=== PATIENT | female | born 1980 | race Caucasian/White ===

== ENCOUNTER → 2019-10-31 12:45 | Outpatient (BNVA) | payer MEDICAID, SELFPAY | PROVIDERS: Family Provider Family Medicine; PCP Family Medicine; Visit Provider Nurse Practitioner | DX: F43.12 Post-traumatic stress disorder, chronic (principal); F31.11 Bipolar disorder, current episode manic without psychotic features, mild; F41.1 Generalized anxiety disorder; F41.0 Panic disorder [episodic paroxysmal anxiety] | CPT/HCPCS: 99214 ==

== ENCOUNTER → 2019-11-13 10:29 | Outpatient (BNVA) | payer MEDICAID, SELFPAY | PROVIDERS: Family Provider Family Medicine; PCP Family Medicine; Visit Provider Psychiatry & Neurology Psychiatry | DX: F31.11 Bipolar disorder, current episode manic without psychotic features, mild (principal); F41.1 Generalized anxiety disorder; F41.0 Panic disorder [episodic paroxysmal anxiety]; F43.12 Post-traumatic stress disorder, chronic | CPT/HCPCS: 99214 ==

== ENCOUNTER → 2019-11-28 15:42 | Outpatient (BNVA) | payer MEDICAID, SELFPAY | PROVIDERS: Family Provider Family Medicine; PCP Family Medicine; Visit Provider Psychiatry & Neurology Psychiatry | DX: F31.11 Bipolar disorder, current episode manic without psychotic features, mild (principal); F41.1 Generalized anxiety disorder; F41.0 Panic disorder [episodic paroxysmal anxiety]; F43.12 Post-traumatic stress disorder, chronic | CPT/HCPCS: 99213 ==

== ENCOUNTER 2019-12-17 19:57 | Emergency (ER) | payer MEDICAID, SELFPAY ==
[2019-12-17 20:00] VITALS: BP 126/87; PULSE 70; RESP 18; TEMP 36.8; O2SAT 99; BMI 20.2
--- NOTE | 2019-12-17 21:23 | ED_ITS ---
Entered by Tatyana Rose, acting as scribe for HPI - General Adult General: Chief complaint: General Medical Stated complaint: hemorrhoid Time Seen by Provider: 12/17/19 21:22 Source: patient Mode of arrival: ambulatory Limitations: no limitations History of Present Illness: HPI narrative: 39 yo Female presents to ED with complaint of hemorrhoid. Pt states that she went to her doctor's office and was told that her hemorrhoid is thrombosed and she needed to come to the ED to have it lanced. Pt states that she is in severe pain. MD complaint: Hemorrhoid pain Onset (ago): day(s) Location: buttocks Radiation: non-radiation Severity scale (1-10): 8 Quality: constant Pain Consistency: constant Relieving factors: none Exacerbating factors: none Associated symptoms: Reports other (rectal pain); Deny chest pain, confusion, diaphoresis, dyspnea, headache(s), malaise, nausea, rash, palpitations, syncope or vomiting Treatments prior to arrival: none Review of Systems General: Reports: other (negative unless marked) Const: Denies: fever, chills, body aches, fatigue, malaise or diaphoresis Eyes: Denies: change in vision or blurry vision ENMT: Denies: throat pain, painful swallowing, hoarseness, ear pain, ear discharge, Change in hearing or nasal discharge Card: Denies: chest pain, palpitations, irregular heart rhythm, syncope, pre- syncope, shortness of breath on exertion or shortness of breath when lying down Resp: Denies: shortness of breath, productive cough, non-productive cough, wheezing, coughing up blood or chest congestion GI: Reports: rectal pain; Denies: abdominal pain, nausea, vomiting, vomiting blood, coffee grounds in vomit, diarrhea, constipation, cramping, blood in stool or black tarry stool : Denies: flank pain, painful urination, urinary frequency, urinary urgency, decreased urine ouput, urinary incontinence or blood in urine Musc: Denies: neck pain, back pain, extremity pain, extremity swelling, joint pain, joint swelling, joint warmth or joint stiffness Skin/Breast: Denies: rash, skin tenderness or yellow skin Neuro: Denies: headache, numbness in extremities, weakness in extremities, changes in sensation, lack of coordination, difficulty walking, dizziness, vertigo or confusion Endo: Denies: excessive thirst, tired all the time, cold intolerance, excessive sweating, flushing or hot flashes Livan/Lymph: Denies: easy bruising, easy bleeding, petechiae or enlarged lymph nodes All/Imm: Denies: hives, throat swelling, tongue swelling, facial swelling or acute wheezing PFSH ED PFSH: Medical History Bipolar disorder, current episode manic without psychotic features, mild Generalized anxiety disorder Panic disorder [episodic paroxysmal anxiety] Post-traumatic stress disorder, chronic Social History Smoking and tobacco status: never smoked Second hand smoke exposure: No Smoking risk assessment/counseling performed?: Yes Tobacco counseling given: counseling >3 minutes Desire information about substance/drug rehabilitation?: No Physical Exam Const: COMMON NORMALS: no apparent distress, oriented x3, no limitations, healthy appearing and well nourished EXAM LIMITATIONS: no altered mental status GENERAL APPEARANCE: cooperative, well kempt and well developed ORIENTATION/CONSCIOUSNESS: Yes awake HENMT: COMMON NORMALS: normocephalic, head/scalp atraumatic, hearing grossly normal bilaterally, external ears normal, EAC's normal, external nose normal and moist oral mucous membranes HEAD & SCALP: normal to inspection, normocephalic and atraumatic FACE & SINUS: normal facial exam and face symmetric NOSE: external nose normal and nares normal EXTERNAL EAR: Yes external ears normal EXTERNAL AUDITORY CANAL: EAC's normal MOUTH: oral and palatal mucosa normal and tongue normal Eye: COMMON NORMALS: PERRL, EOMs intact bilaterally, conjunctivae normal and no scleral icterus GENERAL EYE: normal appearance of both eyes and normal light reflex CONJUNCTIVA: Yes conjunctivae normal SCLERA: sclerae normal CORNEA: Yes corneas normal PUPIL: Yes PERRL DIRECT OPHTHALMOSCOPY: Yes normal light reflex Neck/C-Spine: COMMON NORMALS: full ROM, no lymphadenopathy, supple, no meningeal signs and no JVD GENERAL: Yes normal visual inspection and Yes trachea midline CERVICAL SPINE: Yes cervical ROM normal Chest: COMMONS NORMALS: inspection of chest normal and palpation of chest normal Resp: COMMON NORMALS: normal respiratory effort, no retractions, no use of accessory muscles and clear to auscultation bilaterally EFFORT & INSPECTION: Yes able to speak in complete sentences AUSCULTATION: clear to auscultation bilaterally Cardio: COMMON NORMALS: no JVD, regular rate, regular rhythm, S1 normal heart sound, S2 normal heart sound, no gallops, no clicks, no murmurs and no rub JUGULAR VENOUS DISTENTION: no JVD RATE: regular rate RHYTHM: regular rhythm HEART SOUNDS: S1 normal and S2 normal GI: COMMON NORMALS: soft to palpation, non-tender, no hepatosplenomegaly and no masses INSPECTION: Yes normal to inspection PALPATION: Yes soft and Yes no hepatosplenomegaly : COMMON NORMALS: Yes no CVA tenderness BLADDER/KIDNEY EXAM: Yes no CVA tenderness Back/Pelvis: COMMON NORMALS: no CVA tenderness, thoracic and lumbar spine normal to inspection, no thoracic nor lumbar tenderness and thoraco-lumbar ROM normal Extremity: COMMON NORMALS: normal to inspection, full ROM, normal capillary refill, no joint enlargement, no clubbing, cyanosis or edema and no calf tenderness Neuro: COMMON NORMALS: oriented x3, CN's II-XII intact bilaterally, moves all extremities, no focal motor deficits and no sensory deficits noted MENINGEAL SIGNS: Yes no meningeal signs Psych: COMMON NORMALS: mental status grossly normal, thought process normal, cooperative, affect normal, speech normal and activity/motor behavior normal APPEARANCE: Yes well kempt SPEECH: Yes normal speech THOUGHT PROCESS: normal thought process Skin: COMMON NORMALS: no rashes or lesions noted, skin turgor normal, no jaundice, no petechiae and no mottling GENERAL SKIN EXAM: no rashes or lesions noted and turgor normal Course Vital Signs: Vital signs: Vital Signs Temperature 98.2 F 12/17/19 20:00 Pulse Rate 73 12/17/19 22:05 Respiratory Rate 18 12/17/19 22:05 Blood Pressure 131/80 12/17/19 22:05 Pulse Oximetry 98 12/17/19 22:05 Discharge Plan Discharge Patient Disposition: Home, Self-Care Clinical Impression: Hemorrhoid Qualifiers: Hemorrhoid type: unspecified Qualified Code(s): K64.9 - Unspecified hemorrhoids Condition: Stable Prescriptions: New Anusol-HC 25 mg suppository 25 mg OH Q12H 14 Days RF: 0 No Action baclofen 10 mg tablet 15 mg PO TID RF: 0 ibuprofen 800 mg tablet 800 mg PO Q6H PRN (Reason: pain) RF: 0 ziprasidone HCl [Geodon] 40 mg capsule 40 mg PO BID Qty: 60 RF: 2 sertraline 50 mg tablet 50 mg PO DAILY Qty: 30 RF: 1 trazodone 50 mg tablet 100 mg PO .HS Qty: 60 RF: 1 hydroxyzine HCl 50 mg tablet 50 mg PO QID PRN (Reason: anxiety) Qty: 120 RF: 1 estradiol 0.5 mg tablet 0.5 mg PO DAILY Qty: 30 RF: 12 medroxyprogesterone 2.5 mg tablet 2.5 mg PO DAILY Qty: 30 RF: 12 Discharge Orders: Discharge Order (Routine); Ordered 12/17/19 Ordered By: Samia Hopper Referrals: Lauren Marie MD [Family Provider] - Brad Vu MD [Physician] - 1-3 days (Call for an appointment tomorrow as Dr. Vu is in for me he will be able to see you in the office.) Nikia Carroll DO [Physician] - Discharge Diet: Advance as tolerated Discharge Activity: Increase activity as tolerated Patient Instructions: Hemorrhoids (ED) Activity Restrictions/Additional Instructions: Please return to the ER immediately for any of the signs or symptoms listed on your discharge instruction sheets, worsening/changing of your symptoms, you are not getting better as quickly as expected, or for ANY other cause or concerns. Discharge Date/Time: 12/17/19 22:05 Coding Level of Care Code ED Traffic Clerk for Chg Fwd Exam Comprehensive The documentation recorded by the Rose villalobos Carmen, accurately reflects the service I personally performed and the decisions made by Ruchi chau Eli N Dec 17, 2019 19:57
--- NOTE | 2019-12-17 21:44 | PC.NURSE ---
Assessment Patient states she has a long history of hemorrhoids for 20 years now. Symptoms are worsened compared to normal.
[2019-12-17] MEDS: hydrocortisone 2.5% cream 28 gm 1 APPLIC PR (22:04)
[2019-12-17 22:05] VITALS: BP 131/80; PULSE 73; RESP 18; O2SAT 98
--- NOTE | 2019-12-18 11:01 | DCPLANNER ---
manager casino had message to schedule a follow up appointment for patient with general surgery. manager casino called the [facility], spoke with Melanie. A follow up appointment is scheduled for Monday, December 18, 2019 at 3:[address] Vu. Patient is aware of appointment.
--- NOTE | 2019-12-19 08:57 | DCPLANNER ---
Patient attended appointment scheduled for 12.18.19 with [facility].
== END 2019-12-17 22:05 | disposition home or self-care (01) ==
PROVIDERS: Emergency Provider Emergency Medicine; Family Provider Family Medicine
DX: K64.9 Unspecified hemorrhoids (principal)
CPT/HCPCS: 12345; 99281; 99282

== ENCOUNTER → 2019-12-19 11:01 | Outpatient (BNVA) | payer MEDICAID, SELFPAY | PROVIDERS: Family Provider Family Medicine; PCP Physician Assistant; Visit Provider Psychiatry & Neurology Psychiatry | DX: F60.3 Borderline personality disorder (principal); F41.0 Panic disorder [episodic paroxysmal anxiety]; F41.1 Generalized anxiety disorder; F43.12 Post-traumatic stress disorder, chronic | CPT/HCPCS: 99213 ==

== ENCOUNTER 2019-12-24 08:25 | Day surgery (SDC) | payer MEDICAID, SELFPAY ==
[2019-12-23 09:18] VITALS: BMI 20.2
[2019-12-24] VITALS (7 sets, daily range): BP systolic 117–137; BP diastolic 72–93; PULSE 75–115; RESP 14–22; TEMP 36.1–36.8; O2SAT 99–100
--- NOTE | 2019-12-24 08:51 | W.PM.OPSUD ---
Surgery/Procedure H&P Update DATE OF PROCEDURE: December 24, 2019 DATE H&P PERFORMED: 12/18/19 H&P UPDATE INFORMATION: I have reviewed H&P completed within last 30 days, I have examined patient prior to procedure and No changes to prior documentation PREOP DIAGNOSIS: Symptomatic hemorrhoids PRIMARY INDICATION FOR PROCEDURE: The same PLANNED PROCEDURE: Operation Date: 12/24/19 10:25 Proposed Procedures p Exam Under Anesthesia 97850 [id number] K64.9(Not Applicable) - Brad Vu MD s Hemorroidectomy(Not Applicable) - Brad Vu MD
[2019-12-24] MEDS: sodium chloride 0.9% 1,000 ML 30 ML IV (09:05)
--- NOTE | 2019-12-24 09:29 | ANES.PREANE2 ---
Pre-Anesthetic Assessment Pre-Anesthetic Assessment: Height/Weight: Height 1.75 m Weight 62.142 kg Temp Pulse Resp BP Pulse Ox 98.1 F 83 18 123/93 100 12/24/19 09:00 12/24/19 09:00 12/24/19 09:00 12/24/19 09:00 12/24/19 09:00 Preop Diagnosis: Symptomatic hemorrhoids Proposed Procedure: Operation Date: 12/24/19 10:25 Proposed Procedures p Exam Under Anesthesia 13104 [id number] K64.9(Not Applicable) - Brad Vu MD s Hemorroidectomy(Not Applicable) - Brad Vu MD Last intake: Intake Last Liquid Date 12/23/19 Last Liquid Time 19:00 Last Solid Date 12/23/19 Last Solid Time 19:00 Social: Social History: No alcohol and No tobacco Exam: Pre-Anes Outpt Exam: alert, oriented x 3, clear to auscultation bilaterally and regular rate & rhythm Airway: Submandibular: WNL Cervical ROM: WNL MP: 1 Dentition: Other (ok) History/ROS: No significant history except as noted Pulmonary: Pulmonary: None reported CV/HEM: CV/HEM: None reported : : None reported Hepatic: Hepatic: None reported GI: GI: None reported Metabolic: Metabolic: None reported Musc/skel: Musc/skel: None reported Neuropsych: Neuropsych: Bipolar Anesthetic Plan: ASA status: 2 Anesthesia: Anesthesia Evaluation and General Risk of > 500 ml blood loss (7ml/kg in children): No PFSH Anesthesia PFSH: Medical History Bipolar disorder, current episode manic without psychotic features, mild Generalized anxiety disorder Panic disorder [episodic paroxysmal anxiety] Post-traumatic stress disorder, chronic Family History Denies family history of Diabetes Anesthesia complication Cancer Hypertension Social History Smoking and tobacco status: never smoked Second hand smoke exposure: No Smoking risk assessment/counseling performed?: Yes Tobacco counseling given: counseling >3 minutes Desire information about substance/drug rehabilitation?: No Data Anesthesia Cardiac Studies: No Data to Display
[2019-12-24] MEDS: midazolam 1 mg/mL INJ 2 mL 2 MG IVP (09:39)
--- NOTE | 2019-12-24 11:50 | PM.OP ---
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 Informed consent per Procedure: Patient was identified in the holding area and was taken back to the operating room, which was first placed in supine position got intubated by anesthesia, prophylactic IV antibiotics were given per protocol,Timeout was done verifying the patient's name/date of /planned procedure and destination after the procedure, all were in agreement. We placed the patient after that in left lateral position were all pressure points were padded, Prep and drape was done thereafter under the usual sterile technique,started by pudendal nerve block bilaterally , injecting 10 mL of saline with 20 mL of Exparel on each side , guided by the examining finger towards the ischial spine bilaterally, followed by that digital rectal examination showed no masses were appreciated or bleeding. Anoscope was then introduced I was able to identify the internal/external hemorrhoid left lower lateral & right lower lateral , I placed a wet 4 x 4 inside the anal canal to prevent stools from encroaching on the wound site, that was taken out at the end of the procedure. I did apply a hemostat at the origin of the hemorrhoidal tissue, I started by the left lower hemorrhoid first followed by the right lateral, using the same technique which is dissecting it with harmonic scalpel device safeguarding the external anal sphincter after that I was able to deliver the specimens to the circulating nurse hemostasis was achieved , and running 2-0 chromic catgut suture was applied to approximate the edges of the hemorrhoidectomy sites, that was done after thorough irrigation of the wound with warm normal saline . At that point after removal of the 4 x 4'sx1, I applied a piece of Xeroform impregnated lidocaine 2% jelly at the site of the wound and a piece of Surgicel both were rolled up as a Cigar like and and 2-0 silk stitch was applied at the end that faces the exit of the anus as it will be easier to pull out later on, followed by 4 x 4 application and ABD .,a surgical pants was then placed to hold the dressing in place. Count was completed at the end of the procedure, patient was then extubated and was taken to the recovery room in stable condition I was present for the whole entire procedure
--- NOTE | 2019-12-24 12:03 | SUR.PHASEI ---
1157 PATIENT TO PACU AT THIS TIME. PLACED ON SIMPLE MASK AT 8L, SPO2 100%. PATIENT NOTED TO BE SHIVERING, WARM BLANKETS AND WARMER PLACED ON PATIENT.
--- NOTE | 2019-12-24 12:24 | SUR.PHASEI ---
1218 PATIENT TO OPS AT THIS TIME. NO DISTRESS. PAIN 03/18, WOULD LIKE A PAIN PILL.
[2019-12-24] MEDS: HYDROcodone-acetaminophen 5-325 mg Tablet 1 TAB PO (13:26)
== END 2019-12-24 13:25 | disposition home or self-care (01) ==
PROVIDERS: Family Provider Family Medicine; PCP Physician Assistant; Visit Provider Surgery
PROC: (CPT 46260; principal; 2019-12-24 10:25)
PROC: (CPT 46260; 2019-12-24 10:25)
DX: K64.8 Other hemorrhoids (principal); F41.9 Anxiety disorder, unspecified; F31.9 Bipolar disorder, unspecified
CPT/HCPCS: 46260; 12345; 88304; 96374; C9290; J0131; J0330; J0694; J1100; J2001; J2250; J2405; J2704; J2710; J3010; J3490; J7030

== ENCOUNTER 2019-12-29 14:27 | Emergency (ER) | payer MEDICAID, SELFPAY ==
[2019-12-29 14:27] VITALS: BP 131/73; PULSE 73; RESP 16; TEMP 36.8; O2SAT 99; BMI 19.2
--- NOTE | 2019-12-29 14:47 | CTR_ITS ---
PROCEDURE INFORMATION: Exam: CT Neck With Contrast Exam date and time: 12/29/2019 3:00 PM Age: 39 years old Clinical indication: Throat pain; Additional info: Intubation over 72 hrs ago; Dysphagia, pain TECHNIQUE: Imaging protocol: Computed tomography images of the neck with intravenous contrast. Total DLP: 579.75 mGy-cm Radiation optimization: All CT scans at this facility use at least one of these dose optimization techniques: automated exposure control; mA and/or kV adjustment per patient size (includes targeted exams where dose is matched to clinical indication); or iterative reconstruction. Contrast material: OMNI 300; Contrast volume: 95 ml; Contrast route: RT AC; COMPARISON: CT Cervical Spine wo* [id number] 04/19/2018 6:04 PM FINDINGS: Nasopharynx: Unremarkable. Oropharynx: Unremarkable. No significant tonsillar enlargement. Hypopharynx: Unremarkable. Larynx: Unremarkable. Normal epiglottis. Retropharyngeal space: Unremarkable. Submandibular/Parotid glands: Normal. Glands are normal in size. Thyroid: Normal. No enlarged or calcified nodules. Lymph nodes: Unremarkable. No lymphadenopathy. Trachea: Visualized trachea is unremarkable. Lungs: Unremarkable as visualized. Dental: Examination is limited secondary to metallic artifact from dental fillings and/or dental hardware. Bones/joints: Unremarkable. No acute fracture. Soft tissues: Unremarkable. No significant soft tissue swelling. Other findings: Mild dextroscoliosis. CT/CT neck w con* [id number] IMPRESSION: No acute findings. Radiation Dose CTDIVOL = (mGy): DLP = 579.75 (mGy-cm)
--- NOTE | 2019-12-29 14:53 | ED_ITS ---
HPI - General Adult General: Chief complaint: Dental/Oral Stated complaint: SORE THROAT Time Seen by Provider: 12/29/19 14:30 Source: patient Mode of arrival: ambulatory Limitations: no limitations History of Present Illness: HPI narrative: Patient is a 39-year-old female who presents to ED today with complaints of painful swallowing/sore throat, redness to her throat, and neck pain. Patient tells me she had a hemorrhoidectomy approximately 3 to 4 days ago in which she was intubated during the procedure. Patient tells me after the extubation she did not have any pain and continued not to have any pain until today. She states she is having trouble swallowing. Onset (ago): hour(s) Location: mouth Pain Consistency: constant Relieving factors: eating and other (swallowing) Exacerbating factors: none Associated symptoms: Reports no associated symptoms; Deny chest pain, dyspnea, nausea, palpitations, syncope or vomiting Treatments prior to arrival: none Review of Systems Const: Denies: fever, chills or body aches ENMT: Reports: throat pain and painful swallowing; Denies: uvular edema, enlarged tonsils, swelling of lips/tongue, oral sores/ lesions, dental pain, nasal congestion or facial/sinus pain Card: Denies: chest pain, palpitations, irregular heart rhythm, edema, lightheadedness, syncope, pre-syncope or shortness of breath when lying down Resp: Denies: shortness of breath, productive cough, non-productive cough, pain on inspiration, coughing up blood or chest congestion GI: Denies: nausea or vomiting Musc: Reports: neck pain (anterior neck when swallowing); Denies: back pain [facility] PFSH: Social History Smoking and tobacco status: never smoked Second hand smoke exposure: No Smoking risk assessment/counseling performed?: Yes Tobacco counseling given: counseling >3 minutes Desire information about substance/drug rehabilitation?: No Physical Exam Const: COMMON NORMALS: no apparent distress, average body habitus, oriented x3, no limitations, healthy appearing, alert and well nourished HENMT: COMMON NORMALS: normocephalic, head/scalp atraumatic and gingiva normal HEAD & SCALP: normal to inspection, normocephalic and atraumatic MOUTH: lip normal, tongue normal and salivary glands and ducts normal THROAT: tonsils normal, uvula midline and other (pt with erythema to posterior pharynx; no swelling noted); no uvular edema Neck/C-Spine: OTHER: no crepitus, bruits, or other abnormalities noted Neuro: COMMON NORMALS: oriented x3 SENSORIUM/ORIENTATION: Yes alert Course Vital Signs: Vital signs: Vital Signs Temperature 98.2 F 12/29/19 14:27 Pulse Rate 73 12/29/19 14:27 Respiratory Rate 16 12/29/19 14:27 Blood Pressure 131/73 12/29/19 14:27 Pulse Oximetry 99 12/29/19 14:27 [facility] - General Adult Imaging Data^: CT neck: Radiologist's impression: [place] [address] CT Scan Report Signed Patient: Trish Julien Unit #: [id number] : [id number] Age/Sex: 39 / F ADM Date: 12/29/19 Loc: ER Room/Bed: Attending Dr: Ordering Provider/Ordering MD: Sujey June Date of Service: 12/29/19 Procedure(s): CT neck w [facility]* [id number] Accession Number(s): [id number] Report Number: [id number] PROCEDURE INFORMATION: Exam: CT Neck With Contrast Exam date and time: 12/29/2019 3:00 PM Age: 39 years old Clinical indication: Throat pain; Additional info: Intubation over 72 hrs ago; Dysphagia, pain TECHNIQUE: Imaging protocol: Computed tomography images of the neck with intravenous contrast. Total DLP: 579.75 mGy-cm Radiation optimization: All CT scans at this facility use at least one of these dose optimization techniques: automated exposure control; mA and/or kV adjustment per patient size (includes targeted exams where dose is matched to clinical indication); or iterative reconstruction. Contrast material: OMNI 300; Contrast volume: 95 ml; Contrast route: RT AC; COMPARISON: CT Cervical Spine wo* [id number] 04/19/2018 6:04 PM FINDINGS: Nasopharynx: Unremarkable. Oropharynx: Unremarkable. No significant tonsillar enlargement. Hypopharynx: Unremarkable. Larynx: Unremarkable. Normal epiglottis. Retropharyngeal space: Unremarkable. Submandibular/Parotid glands: Normal. Glands are normal in size. Thyroid: Normal. No enlarged or calcified nodules. Lymph nodes: Unremarkable. No lymphadenopathy. Trachea: Visualized trachea is unremarkable. Lungs: Unremarkable as visualized. Dental: Examination is limited secondary to metallic artifact from dental fillings and/or dental hardware. Bones/joints: Unremarkable. No acute fracture. Soft tissues: Unremarkable. No significant soft tissue swelling. Other findings: Mild dextroscoliosis. CT/CT neck w con* [id number] IMPRESSION: No acute findings. Radiation Dose CTDIVOL = (mGy): DLP = 579.75 (mGy-cm) Dictated By: Roberto Clay MD Signed By: Roberto Clay MD Signed Date/Time: 12/29/191523 DD/ 22 Discharge Plan Discharge Patient Disposition: Home, Self-Care Clinical Impression: Throat pain in adult Condition: Stable Prescriptions: No Action baclofen 10 mg tablet 10 mg PO TID RF: 0 ziprasidone HCl [Geodon] 40 mg capsule 40 mg PO BID Qty: 60 RF: 2 hydroxyzine HCl 50 mg tablet 50 mg PO QID PRN (Reason: anxiety) Qty: 120 RF: 1 mirtazapine 15 mg tablet 15 mg PO DAILY Qty: 30 RF: 1 sertraline [Zoloft] 100 mg tablet 100 mg PO DAILY Qty: 30 RF: 1 lidocaine HCl 2 % jelly in applicator 1 applic TOPICAL TID PRN (Reason: pain) Qty: 60 RF: 0 estradiol 0.5 mg tablet 0.5 mg PO DAILY Qty: 30 RF: 12 medroxyprogesterone 2.5 mg tablet 2.5 mg PO DAILY Qty: 30 RF: 12 pregabalin [Lyrica] 50 mg Capsule 50 mg PO BID RF: 0 Iron 5-325 mg tablet 1 tab PO Q6H PRN (Reason: pain) Qty: 28 RF: 0 Discharge Orders: Discharge Order (Routine); Ordered 12/29/19 Ordered By: Sujey June Referrals: Lauren Marie MD [Family Provider] - Marleny Clarke PA [Primary Care Provider] - Discharge Diet: Usual diet Discharge Activity: Increase activity as tolerated Patient Instructions: Sore Throat - Adult Coding Level of Care Code ED Jewel Hole Cornerer for Chg Fwd
[2019-12-29] MEDS: iohexol 300 mg/mL 100 mL Btl IV (15:18)
[2019-12-29 15:33] VITALS: BP 120/80; PULSE 72; RESP 16; TEMP 36.8; O2SAT 100
== END 2019-12-29 15:41 | disposition home or self-care (01) ==
LOC: ER 15:35
PROVIDERS: Emergency Provider Physician Assistant; Family Provider Family Medicine; PCP Physician Assistant
DX: J02.9 Acute pharyngitis, unspecified (principal)
CPT/HCPCS: 12345; 70491; 99281; 99283; Q9967

== ENCOUNTER 2020-01-01 13:30 | Outpatient (CLI) | payer MEDICAID, SELFPAY ==
--- NOTE | 2020-01-01 13:47 | MR_ITS ---
WS: [id number] MRI CERVICAL SPINE HISTORY: NECK PAIN COMPARISON: 12/29/2019 Normal cervical alignment with no compression fracture or significant disc space narrowing. Signal within the cervical cord is normal. Visualized posterior fossa is unremarkable. Craniocervical junction, C1 and C2 relationship, odontoid process and soft tissues are normal. C2-C3: Normal. C3-C4: Normal. C4-C5: Minimal annular disc bulging and osteophytes. No stenosis. C5-C6: Mild annular disc bulging with a very shallow central disc protrusion. No cord contact. C6-C7: Normal. C7-T1: Normal. Paraspinal soft tissue are normal. MR/MR cervical spin wo con* [id number] IMPRESSION: 1. No significant central or foraminal stenosis. 2. Mild annular disc bulging with a very shallow central disc protrusion at C5 -6.
== END 2020-01-01 13:31 | disposition home or self-care (01) ==
LOC: RADWPI 13:34
PROVIDERS: Family Provider Family Medicine; PCP Physician Assistant; Visit Provider Physician Assistant
DX: M50.222 Other cervical disc displacement at C5-C6 level (principal)
CPT/HCPCS: 72141

== ENCOUNTER → 2020-01-16 08:36 | Outpatient (BNVA) | payer MEDICAID, SELFPAY | PROVIDERS: Family Provider Family Medicine; PCP Physician Assistant; Visit Provider Psychiatry & Neurology Psychiatry | DX: F60.3 Borderline personality disorder (principal); F41.0 Panic disorder [episodic paroxysmal anxiety]; F41.1 Generalized anxiety disorder; F43.12 Post-traumatic stress disorder, chronic | CPT/HCPCS: 99213 ==

== ENCOUNTER 2020-01-18 09:20 | Observation (INO) | payer MEDICAID, SELFPAY ==
[2020-01-18] VITALS (16 sets, daily range): BP systolic 92–128; BP diastolic 49–91; PULSE 83–122; RESP 16–20; TEMP 36.5–37.8; O2SAT 92–100; BMI 19.5
--- NOTE | 2020-01-18 09:26 | ED_ITS ---
HPI - GI Bleed General: Chief complaint: General Medical Stated complaint: POST OP BLEEDING Time Seen by Provider: 01/18/20 09:25 Source: patient Mode of arrival: ambulatory Limitations: no limitations History of Present Illness: HPI Narrative: Patient is a 39-year-old female who presents to ED today with complaints of bright red blood coming from her rectum that she noticed this morning after a large bowel movement. Patient underwent internal/external hemorrhoidectomy by Dr. Vu on 12/23. She had a small amount of bleeding following the surgery that he followed up with in office. Patient states since that visit she has not had any further concerns until this morning. Patient states during the bowel movement she noticed approximately a cup of fresh blood. She states afterwards she noticed a bloodstream coming from her rectum. She reports anal tenderness. Patient does report feeling lightheaded. She approximates total blood loss as 2 to 3 cups. MD complaint: gross hematochezia Onset (ago): hour(s) Severity: moderate Relieving factors: none Exacerbating factors: bowel movement Context: hemorrhoids Associated symptoms: Denies chills, fever(s), headache(s), malaise, nausea, rash, syncope or vomiting Review of Systems General: Reports: 10 or more systems reviewed and unremarkable except in HPI and below Const: Denies: fever, chills, body aches, fatigue or malaise Eyes: Denies: change in vision, blurry vision or photophobia ENMT: Denies: throat pain, enlarged tonsils or painful swallowing Card: Denies: chest pain, palpitations, irregular heart rhythm, edema, swelling of feet/ankles, lightheadedness, syncope, pre-syncope, shortness of breath on exertion or shortness of breath when lying down Resp: Denies: shortness of breath, productive cough, non-productive cough, coughing up blood or chest congestion GI: Reports: cramping, rectal pain and blood in stool; Denies: nausea, vomiting, vomiting blood, heartburn/indigestion, diarrhea or black tarry stool : Denies: flank pain, difficulty urinating, painful urination, urinary frequency, urinary urgency or urinary hesitancy Musc: Denies: neck pain, back pain, extremity pain or extremity swelling Skin/Breast: Denies: rash Neuro: Denies: headache, numbness in extremities, weakness in extremities or changes in sensation [facility] ED PFSH: Social History Smoking and tobacco status: never smoked Second hand smoke exposure: No Smoking risk assessment/counseling performed?: Yes Tobacco counseling given: counseling >3 minutes Desire information about substance/drug rehabilitation?: No Physical Exam Const: COMMON NORMALS: no apparent distress, average body habitus, oriented x3, no limitations, healthy appearing, alert and well nourished Resp: COMMON NORMALS: normal respiratory effort and clear to auscultation bilaterally AUSCULTATION: clear to auscultation bilaterally Cardio: COMMON NORMALS: regular rhythm RATE: tachycardic RHYTHM: regular rhythm GI: COMMON NORMALS: normal to inspection, nondistended, normoactive bowel vitor nds, soft to palpation, non-tender, no hepatosplenomegaly and no masses PALPATION: Yes soft and Yes no hepatosplenomegaly RECTAL EXAM: other OTHER: pt has two areas on anus that appear to be dehisced wounds; dissolvable sutures visualized and were no longer anchored; area does not appear to be actively bleeding during my exam; extent could not fully be visualized w/o anoscope : COMMON NORMALS: Yes no CVA tenderness BLADDER/KIDNEY EXAM: Yes no CVA tenderness Back/Pelvis: COMMON NORMALS: no CVA tenderness, thoracic and lumbar spine normal to inspection and no thoracic nor lumbar tenderness Extremity: COMMON NORMALS: normal to inspection Neuro: COMMON NORMALS: oriented x3 SENSORIUM/ORIENTATION: Yes alert Skin: COMMON NORMALS: no rashes or lesions noted GENERAL SKIN EXAM: no rashes or lesions noted Course ED course: RN alerted me that pt had gotten up to use restroom and wanted me to look at amount of blood present in her stool; pt had approximately 3/4 cup of blood in toilet with clots present; pt was noted to be tachycardic in the 130s after just walking to the restroom Consultations: Consultation #1: Dr. Vu-recommended admit to obs under his service, clear liquid diet, NPO at midnight, telemetry, repeat H&H in 6 hours, and he will consult on patient Vital Signs: Vital signs: Vital Signs Temperature 97.7 F 01/18/20 09:26 Pulse Rate 89 01/18/20 12:08 Respiratory Rate 19 H 01/18/20 12:08 Blood Pressure 97/63 01/18/20 12:08 Pulse Oximetry 99 01/18/20 12:08 MDM - GI Bleed MDM Narrative: Medical decision making narrative: Patient is a very nice 39-year-old female who presented to ED today with complaints of bright red blood per rectum beginning this morning. She states anytime she strains she will notice approximately a cupful of bright red blood with clots. Patient became tachycardic in the 130s just with ambulation to the bathroom. She complained of lightheaded and dizziness. She is approximately 24 days status post hemorrhoidectomy by Dr. Vu. Her H&H at this time are stable. We will repeat these labs in 6 hours and admit to general surgery for their consultation. Dr. Denny has also evaluated patient and will place admit orders. Lab Data: Labs: Lab Results 01/18/20 01/18/20 01/18/20 Range/Units 09:46 09:46 09:46 WBC 7.3 (4.0-10.0) 10^3/ uL RBC 3.90 L (4.1-5.3) 10^6/u L Hgb 11.5 (11.5-15.3) g/dL Hct 34.3 L (37.0-47.0) % MCV 87.9 (81-99) fL MCH 29.5 (28.0-34.0) pg MCHC 33.5 (30.0-36.0) g/dL RDW 11.5 L (12.1-15.1) % Plt Count 291 (130-400) 10^3/c mm MPV 9.5 (7.4-10.4) fL Neut % (Auto) 54.7 % Lymph % (Auto) 33.8 % [place] % (Auto) 5.6 % Eos % (Auto) 4.5 % Baso % (Auto) 0.7 % Neut # (Auto) 4.0 (1.8-7.7) 10^3/u L Lymph # (Auto) 2.5 (0.8-4.8) 10^3/u L [place] # (Auto) 0.4 (0.2-0.9) 10^3/u L Eos # (Auto) 0.3 (0.0-0.8) 10^3/u L Baso # (Auto) 0.1 (0.0-0.1) 10^3/u L Nucleated RBC % (a uto) 0 % Nucleated RBCs # 0.0 /100WBC PT 12.40 (10.5-13.3) SECO NDS INR 0.93 (0.8-1.2) APTT 22.9 L (23.9-36.7) SECO NDS Sodium 137 (136-145) mmol/L Potassium 3.9 (3.5-5.1) mmol/L Chloride 101 (98-107) mmol/L Carbon Dioxide 25 (22-29) mmol/L Anion Gap 14.9 (5-19) BUN 14 (6-20) mg/dL Creatinine 0.7 (0.5-0.9) mg/dL GFR Calculation 94.2 (90-130) mL/min Glucose 165 H (65-115) mg/dL Calculated Osmolal ity 284 L (285-295) mOsm/k g Calcium 9.3 (8.5-10.5) mg/dL Total Bilirubin 0.3 (0.15-1.2) mg/dL AST 15 (0-32) U/L ALT 8 (0-33) U/L Alkaline Phosphata se 73 (35-105) IU/L Total Protein 6.9 (6.6-8.7) g/dL Albumin 4.2 (3.5-5.2) g/dL Globulin 2.7 (1.3-4.6) g/dL Discharge Plan Discharge Patient Disposition: Placed in Observation Admit Provider: Brad Vu Clinical Impression: BRBPR (bright red blood per rectum), History of hemorrhoidectomy Condition: Stable Referrals: Lauren Marie MD [Family Provider] - Marleny Clarke PA [Primary Care Provider] - Coding Level of Care Code ED Stock Order Lister for Chg Fwd Exam Comprehensive
[2020-01-18 09:56] LABS: Basophils # 0.1 10^3/uL (0.0-0.1); Basophils % 0.7 %; Eosinophils # 0.3 10^3/uL (0.0-0.8); Eosinophils % 4.5 %; Hematocrit 34.3 % (37.0-47.0); Hemoglobin 11.5 g/dL (11.5-15.3); Lymphocytes # 2.5 10^3/uL (0.8-4.8); Lymphocytes % 33.8 %; Mean Corpuscular HGB Conc 33.5 g/dL (30.0-36.0); Mean Corpuscular Hemoglobin 29.5 pg (28.0-34.0); Mean Corpuscular Volume 87.9 fL (81-99); Mean Platelet Volume 9.5 fL (7.4-10.4); Monocytes # 0.4 10^3/uL (0.2-0.9); Monocytes % 5.6 %; Neutrophils % 54.7 %; Nucleated Red Blood Cells % 0 %; Platelet Count 291 10^3/cmm (130-400); Red Cell Distribution Width 11.5 % (12.1-15.1); White Blood Count 7.3 10^3/uL (4.0-10.0)
--- NOTE | 2020-01-18 10:06 | PC.NURSE ---
pt up to restroom and had a lot of blood in stool. ED provider notified. Pt reports feeling dizzy
[2020-01-18 10:13] LABS: Alanine Aminotransferase 8 U/L (0-33); Albumin Level 4.2 g/dL (3.5-5.2); Alkaline Phosphatase 73 IU/L (35-105); Anion Gap 14.9 (5-19); Aspartate Amino Transferase 15 U/L (0-32); Blood Urea Nitrogen 14 mg/dL (6-20); Calcium 9.3 mg/dL (8.5-10.5); Carbon Dioxide 25 mmol/L (22-29); Chloride 101 mmol/L (98-107); Globulin 2.7 g/dL (1.3-4.6); Glomerular Filtration Rate 94.2 mL/min (90-130); Glucose 165 mg/dL (65-115); Osmolality Calculated 284 mOsm/kg (285-295); Potassium 3.9 mmol/L (3.5-5.1); Sodium 137 mmol/L (136-145); Total Bilirubin 0.3 mg/dL (0.15-1.2); Total Protein 6.9 g/dL (6.6-8.7)
[2020-01-18] MEDS: sodium chloride 0.9% 1,000 ML 999 ML IV (10:24)
[2020-01-18] MEDS: morphine 4 mg/mL SDV 1 mL IVP (10:41)
[2020-01-18] MEDS: ondansetron 2 mg/ML SDV 2 mL 4 MG IVP (10:41)
[2020-01-18 10:50] LABS: INR 0.93 (0.8-1.2); Partial Thromboplastin Time 22.9 SECONDS (23.9-36.7)
--- NOTE | 2020-01-18 14:34 | P.HP_ITS ---
Providers/Chief Complaint Admitting Physician: Brad Vu MD Primary Care Provider: Marleny Clarke Chief Complaint: POST OP BLEEDING History of Present Illness Chief Complaint: I have blood coming from the bottom History of present illness: Ms. Trish Julien is a 39 year old female well known to me had examination under anesthesia with hemorrhoidectomy for grade IV hemorrhoids back in December 23, 2018 and overall patient did well yet she did have reidual daughter hemorrhoids as well, patient followed up with me one time at the office and overall she did well yet she did have some minimal bleeding per rectum after surgery, without clinical significance yet today at 8:00 in the morning she had a large bowel movement and she believes that she had 2 cups of fresh blood, came to the emergency department and was evaluated her blood work was appropriate yet she did have blood from the rectum, patient was evaluated in emergency department I was contacted and I elected to have the patient for observation with repeat blood work with the plan to perform examination under anesthesia. Review of Systems General: Reports: 10 or more systems reviewed and unremarkable except in HPI and below Medications/Allergies Home Medications Medication Instructions Recorded Confirmed Last Taken Type Zoloft 50 mg PO DAILY 01/18/20 01/18/20 01/17/20 History pantoprazole 40 mg PO DAILY 01/18/20 01/18/20 01/17/20 History trazodone 50 mg PO BEDTIME 01/18/20 01/18/20 01/17/20 History Allergies Allergy/AdvReac Type Severity Reaction Status Date / Time codeine Allergy Anaphalactic Verified 01/18/20 14:52 shoick droperidol [From Inapsine] Allergy Anaphalctic Verified 01/18/20 14:52 shock tramadol Allergy ALGY-Hives Verified 01/18/20 14:52 lamotrigine [From Lamictal] AdvReac Hives Verified 01/18/20 14:52 metoprolol AdvReac Hives Verified 01/18/20 14:52 PFSH Acute PFSH: Medical History (Updated 01/18/20 @ 14:52 by Brad Vu MD) Bipolar disorder, current episode manic without psychotic features, mild Generalized anxiety disorder Panic disorder [episodic paroxysmal anxiety] Post-traumatic stress disorder, chronic Surgical History (Updated 01/18/20 @ 14:52 by Brad Vu MD) Status post hemorrhoidectomy (~12/2019) Social History Smoking and tobacco status: never smoked Second hand smoke exposure: No Smoking risk assessment/counseling performed?: Yes Tobacco counseling given: counseling >3 minutes Desire information about substance/drug rehabilitation?: No Vitals/I&O/Wt Last Vital Signs Temp 98.6 F 01/18/20 13:15 Pulse 88 01/18/20 13:15 Resp 18 01/18/20 13:15 BP 109/68 01/18/20 13:15 Pulse Ox 98 01/18/20 13:15 01/17/20 01/18/20 01/18/20 22:59 06:59 14:59 Intake Total 1000 / 1000 Balance 1000 / 1000 Weight last 48 hrs Weight 132 lb Physical Exam Narrative: EXAM NARRATIVE: Patient is conscious alert oriented X3 BMI 19.5 Head and neck examination PERRLA no masses no cervical lymphadenopathy no jaundice Cardiac examination audible S1-S2 no murmurs no gallops no arrhythmias Chest is clear bilateral,abscence of Rhonchi or wheezes,no surgical emphysema Abdomen nontender nondistended soft no organomegaly guarding or rigidity/no signs of peritonitis Perianal examination was done in the presence of female foundation drill operator helper nurse Agueda shows residual hemorrhoidal tissues likely daughter hemorrhoids externally located, there was streaks of fresh blood per Le. No perianal tenderness or abscess formation or fistulae or sinuses Extremities no cyanosis no clubbing no edema Data : 01/18/20 09:46 01/18/20 09:46 A&P Assessment and plan (1) Bleeding per rectum: After thorough history physical examination and reviewing the chart and further counseling the patient will perform Urgent examination under anesthesia and possible hemorrhoidectomy likely the patient have bleeding from the raw area of the larger hemorrhoids that being removed or residual daughter hemorrhoids. Informed consent per chart Will Start the patient on cefoxitin Status: Acute Attestations Medical Necessity Statement*: Observation status Time Spent in Patient Care: 16 - 35 minutes (>than 50% of time spent in counselling and/or direct pt care on unit) . Coding Level of Care Code Acute Cost And Risk Analysis Manager for Tim Peres Diagnoses Bleeding per rectum K62.5
--- NOTE | 2020-01-18 14:48 | PC.NURSE ---
Dr. Vu at bedside to discuss options with patient at this time.
[2020-01-18] MEDS: morphine 4 mg/mL SDV 1 mL 2 MG IVP ×2 (14:56→18:36)
[2020-01-18] MEDS: sodium chloride 0.9% 1,000 ML 125 ML IV ×2 (15:15→23:43)
--- NOTE | 2020-01-18 15:35 | PC.NURSE ---
Patient to Surgery at this time. Patient is A&Ox3. Respirations even and non-labored on room air.
--- NOTE | 2020-01-18 15:38 | ANES.PREANE2 ---
Pre-Anesthetic Assessment Pre-Anesthetic Assessment: Height/Weight: Height 1.75 m Weight 59.874 kg Temp Pulse Resp BP Pulse Ox 98.6 F 88 18 109/68 98 01/18/20 13:15 01/18/20 13:15 01/18/20 14:56 01/18/20 13:15 01/18/20 13:15 Preop Diagnosis: Bleeding per rectum Proposed Procedure: Operation Date: 01/18/20 10:15 Proposed Procedures p Pending: Hemorroidectomy(Not Applicable) - Brad Vu MD Last Intake: 20:00 Exam: Pre-Anes Outpt Exam: alert, oriented x 3, clear to auscultation bilaterally and regular rate & rhythm Airway: Submandibular: WNL Cervical ROM: WNL MP: 1 Neuropsych: Neuropsych: Anxiety, Bipolar, Depression and BAIG Anesthetic Plan: ASA status: 2E Anesthesia: General Meds/Allergies Current Medications: Current Medications Generic Name Dose Route Start Last Admin Trade Name Freq PRN Reason Stop Dose Admin Baclofen 10 mg 01/18/20 15:00 01/18/20 15:15 Lioresal PO Not Given TID JORDY Potassium Chloride /Sodium Chloride 20 meq in 1,000 m ls @ 125 mls/hr 01/18/20 10:15 01/18/20 15:01 Sodium Chlor 0.9 % + Kcl 20 Meq IV Not Given .Q8H JORDY Sodium Chloride 1,000 mls @ 125 m ls/hr 01/18/20 15:00 01/18/20 15:15 Sodium Chloride 0.9% IV 125 mls/hr .Q8H JORDY Administration Morphine Sulfate 2 mg 01/18/20 14:45 01/18/20 14:56 Morphine IVP 2 mg Q2H PRN Administration PAIN PFSH Anesthesia PFSH: Medical History (Updated 01/18/20 @ 14:52 by Brad Vu MD) Bipolar disorder, current episode manic without psychotic features, mild Generalized anxiety disorder Panic disorder [episodic paroxysmal anxiety] Post-traumatic stress disorder, chronic Surgical History (Updated 01/18/20 @ 14:52 by Brad Vu MD) Status post hemorrhoidectomy (~12/2019) Social History Smoking and tobacco status: never smoked Second hand smoke exposure: No Smoking risk assessment/counseling performed?: Yes Tobacco counseling given: counseling >3 minutes Desire information about substance/drug rehabilitation?: No Data Anesthesia CBC & Chem 7: 01/18/20 09:46 01/18/20 09:46 Other Labs: Laboratory Results - last 48 hr 01/18/20 01/18/20 01/18/20 09:46 09:46 09:46 WBC 7.3 RBC 3.90 L Hgb 11.5 Hct 34.3 L MCV 87.9 MCH 29.5 MCHC 33.5 RDW 11.5 L Plt Count 291 MPV 9.5 Neut % (Auto) 54.7 Lymph % (Auto) 33.8 [place] % (Auto) 5.6 Eos % (Auto) 4.5 Baso % (Auto) 0.7 Neut # (Auto) 4.0 Lymph # (Auto) 2.5 [place] # (Auto) 0.4 Eos # (Auto) 0.3 Baso # (Auto) 0.1 Nucleated RBC % (auto) 0 Nucleated RBCs # 0.0 PT 12.40 INR 0.93 APTT 22.9 L Sodium 137 Potassium 3.9 Chloride 101 Carbon Dioxide 25 Anion Gap 14.9 BUN 14 Creatinine 0.7 GFR Calculation 94.2 Glucose 165 H Calculated Osmolality 284 L Calcium 9.3 Total Bilirubin 0.3 AST 15 ALT 8 Alkaline Phosphatase 73 Total Protein 6.9 Albumin 4.2 Globulin 2.7 Cardiac Studies: No Data to Display
[2020-01-18] MEDS: midazolam 1 mg/mL INJ 2 mL 2 MG IVP (15:55)
[2020-01-18] MEDS: ceFOXitin 2,000 MG in sodium chloride 0.9% (plus) 50 ML 100 MG IV (16:01)
[2020-01-18] MEDS: lidocaine 2% INJ 20 mL INJECTION (16:24)
--- NOTE | 2020-01-18 16:41 | PM.OP ---
Operative Report Date of procedure: January 18, 2020 Pre-op Diagnosis: Bleeding per rectum Post-op diagnosis: other (Oozing from the bed of the right lower lateral hemorrhoidectomy site and minor oozing from the left lower hemorrhoidectomy site is) Procedure Done: Examination under anesthesia and hemostasis of post hemorrhoidectomy wound site bleeding Specimens removed/disposition: None Surgeon: Brad Vu Apparatus Repair Mechanic: Surgical james Abbott and Maria R [place] nurse Bran Anesthesia: General (plumbing assembler installer Smart) Estimated blood loss (mL): 20 Condition: stable Disposition: floor Brief History: Ms. Trish Julien is a 39 year old female well known to me had examination under anesthesia with hemorrhoidectomy for grade IV hemorrhoids back in December 23, 2018 and overall patient did well yet she did have reidual daughter hemorrhoids as well, patient followed up with me one time at the office and overall she did well yet she did have some minimal bleeding per rectum after surgery, without clinical significance yet today at 8:00 in the morning she had a large bowel movement and she believes that she had 2 cups of fresh blood, came to the emergency department and was evaluated her blood work was appropriate yet she did have blood from the rectum. I was contacted and I elected to have the patient for observation with repeat blood work with the plan to perform urgent examination under anesthesia. Informed consent per chart Procedure: Patient was identified in the holding area and was taken back to the operating room, which was first placed in supine position got intubated by anesthesia, prophylactic IV antibiotics were given per protocol,Time-out was done verifying the patient's name/date of /planned procedure and destination after the procedure, all were in agreement. Patient was placed in left lateral position were all pressure points were padded, prep and drape was done under the usual sterile technique of the anal and perianal area,digital rectal examination was done shows no masses yet there was some scanty fresh blood,and some induration at the right lower lateral hemorrhoidectomy site and residual raw area at the left lower lateral hemorrhoidectomy site with minor oozing. Anoscope was then introduced.I placed a wet 4 x 4 inside the anal canal to prevent stools from encroaching on the wound site there was some blood clots proximal, that was taken out at the end of the procedure. Hemostasis used couple of 3/0 and 2/0 figure of 8 chromic catgut sutures for hemostasis of the bed of the right lower lateral hemorrhoidectomy site followed by Bovie cauterization, tissues seem to be indurated and moderately inflamed due to the recent surgery. Cauterization also was done to the left lower lateral hemorrhoidectomy site Lidocaine 2% was injected for pudendal nerve block bilateral At that point after removal of the 4 x 4'sx1, I applied a piece of Xeroform impregnated lidocaine 2% jelly at the site of the wound and a piece of Surgicel both were rolled up as a Cigar like and and 2-0 silk stitch was applied at the end that faces the exit of the anus as it will be easier to pull out later on, followed by 4 x 4 application and ABD.A surgical pants was then placed to hold the dressing in place. Count was completed at the end of the procedure, patient was then extubated and was taken to the recovery room in stable condition I was present for the whole entire procedure
--- NOTE | 2020-01-18 17:02 | PM.PACU ---
PACU note PACU note: GOOD RESP EFFORT vss Post-Anesthesia Exam: awake Disposition: back to floor
--- NOTE | 2020-01-18 17:31 | PC.NURSE ---
Patient returned from surgery at this time. Patient is A&Ox3. Respirations even and non-labored on room air. Patient states she is a 8/10 on pain.
[2020-01-18] MEDS: pregabalin 50 mg Capsule PO (17:41)
[2020-01-18] MEDS: HYDROcodone-acetaminophen 5-325 mg Tablet 1 TAB PO ×2 (17:41→23:43)
[2020-01-18] MEDS: ziprasidone hcl 40 mg Capsule PO (18:36)
[2020-01-18] MEDS: baclofen 10 mg Tablet PO (20:14)
[2020-01-18] MEDS: trazodone 50 mg Tablet PO (20:14)
[2020-01-18] MEDS: hyDROXYzine 25 mg Capsule 50 MG PO (20:14)
[2020-01-18] MEDS: mirtazapine 15 mg Tablet PO (20:14)
[2020-01-19] VITALS (9 sets, daily range): BP systolic 107–122; BP diastolic 70–79; PULSE 78–95; RESP 16–18; TEMP 36.7–37.1; O2SAT 96–99
[2020-01-19 05:32] LABS: Hematocrit 26.6 % (37.0-47.0); Hemoglobin 8.7 g/dL (11.5-15.3)
--- NOTE | 2020-01-19 06:15 | P.PN_ITS ---
Subjective Subjective: Interval history: Patient overall feels well yet she does have soreness the perianal area No evidence of bleeding overnight per rectum Vitals/I&O/Wt Last Vital Signs Temp 98.0 F 01/19/20 04:00 Pulse 79 01/19/20 04:00 Resp 18 01/19/20 04:00 BP 111/71 01/19/20 04:00 Pulse Ox 98 01/19/20 04:00 01/18/20 01/18/20 01/19/20 14:59 22:59 06:59 Intake Total 1000 / 1000 50 / 1050 999 / 2049 Output Total 0 / 10 Balance 1000 / 1000 40 / 1040 999 / 2039 Weight last 48 hrs Weight 132 lb Physical Exam Narrative: EXAM NARRATIVE: Patient is conscious alert oriented X3 BMI 20 Perianal examination was done in the presence of patient's RN Jerica Mild perianal tenderness but there is no evidence of bleeding Pack fell off Data : 01/19/20 14:27 01/18/20 09:46 A&P Assessment and plan (1) Bleeding per rectum: Patient continues to be clinically appropriate without evidence of tachycardia or hypotension and no evidence of bleed we will repeat H&H at 10:00 am Continue clear liquid diet then advance as tolerated Repeated physical examination Continue telemetry Status: Resolved Attestations Medical Necessity Statement*: Observation status Time Spent in Patient Care: 16 - 35 minutes (>than 50% of time spent in counselling and/or direct pt care on unit) . Coding Level of Care Code Acute Theatre Director for Tim Peres Diagnoses Bleeding per rectum K62.5
[2020-01-19] MEDS: HYDROcodone-acetaminophen 5-325 mg Tablet 1 TAB PO ×2 (06:32→13:46)
[2020-01-19] MEDS: morphine 4 mg/mL SDV 1 mL 2 MG IVP ×3 (06:35→18:04)
[2020-01-19] MEDS: sodium chloride 0.9% 1,000 ML 125 ML IV ×3 (08:05→22:50)
[2020-01-19] MEDS: baclofen 10 mg Tablet PO ×3 (09:27→20:32)
[2020-01-19] MEDS: sertraline 50 mg Tablet PO (09:27)
[2020-01-19] MEDS: pantoprazole DR 40 mg Tablet PO (09:27)
[2020-01-19] MEDS: psyllium powder Pkt 1 PACKET PO ×2 (09:30→17:56)
[2020-01-19] MEDS: medroxyprogesterone 2.5 mg Tablet PO (10:17)
[2020-01-19] MEDS: ziprasidone hcl 40 mg Capsule PO ×2 (10:17→17:56)
[2020-01-19 10:29] LABS: Hematocrit 24.6 % (37.0-47.0)
[2020-01-19] MEDS: pregabalin 50 mg Capsule PO ×2 (11:36→17:56)
[2020-01-19] MEDS: estradiol 1 mg Tablet 0.5 MG PO (11:37)
[2020-01-19 14:32] LABS: Hematocrit 25.1 % (37.0-47.0); Hemoglobin 8.1 g/dL (11.5-15.3)
[2020-01-19] MEDS: hyDROXYzine 25 mg Capsule 50 MG PO (16:40)
[2020-01-19] MEDS: magnesium citrate Btl 296 mL 150 ML PO (19:05)
[2020-01-19] MEDS: trazodone 50 mg Tablet PO (20:32)
[2020-01-19] MEDS: mirtazapine 15 mg Tablet PO (20:32)
[2020-01-20] VITALS: BP 109/73; PULSE 106; RESP 17; TEMP 37; O2SAT 95
[2020-01-20 04:00] VITALS: BP 103/64; PULSE 91; RESP 17; TEMP 37.2; O2SAT 98
[2020-01-20 04:34] LABS: Hematocrit 23.4 % (37.0-47.0); Hemoglobin 7.7 g/dL (11.5-15.3)
--- NOTE | 2020-01-20 05:33 | P.PN_ITS ---
Subjective Subjective: Interval history: Patient complains of headaches No bowel movements yet Hemoglobin dropped to 7.7 g no evidence of bleeding, repeat hemoglobin came back to 8.1. No indication for blood transfusion at this point Patient was able to have nonbloody bowel movement after 30 mL of lactulose Vitals/I&O/Wt Last Vital Signs Temp 99.0 F 01/20/20 04:00 Pulse 91 01/20/20 04:00 Resp 17 01/20/20 04:00 BP 103/64 01/20/20 04:00 Pulse Ox 98 01/20/20 04:00 01/19/20 01/19/20 01/20/20 14:59 22:59 06:59 Intake Total 2226.667 / 2226.667 1720.00 / 3946.667 Output Total 600 / 600 Balance 2226.667 / 2226.667 1120.00 / 3346.667 Weight last 48 hrs Weight 132 lb Physical Exam Narrative: EXAM NARRATIVE: Patient is conscious alert oriented X3 BMI 20 Head and neck examination PERRLA no masses no cervical lymphadenopathy no jaundice Abdomen nontender nondistended soft no organomegaly guarding or rigidity/no signs of peritonitis Perianal examination was done in the presence of female environmental research project manager Fadia patient's nurse was found to have no evidence of bleeding at the perianal area Data : 01/20/20 10:47 01/18/20 09:46 A&P Assessment and plan (1) Bleeding per rectum: We will plan to discharge patient home today Return to surgery office in 1 week Avoid constipation Sitz bath's with water at room temperature with absence of Assurance and education All questions have been answered and all concerns have been addressed to patient's satisfaction. Status: Resolved Attestations Medical Necessity Statement*: Observation Time Spent in Patient Care: (>than 50% of time spent in counselling and/or direct pt care on unit) . Coding Level of Care Code Acute Sybase Developer for Tim Peres Diagnoses Bleeding per rectum K62.5
--- NOTE | 2020-01-20 05:44 | PC.NURSE ---
Verbal order from Dr. Vu; 150 mg Mag Citrate now x1.
[2020-01-20] MEDS: magnesium citrate Btl 296 mL 150 ML PO ×2 (05:56→08:31)
[2020-01-20] MEDS: HYDROcodone-acetaminophen 5-325 mg Tablet 1 TAB PO ×2 (05:56→11:59)
[2020-01-20] MEDS: sodium chloride 0.9% 1,000 ML 125 ML IV (05:56)
[2020-01-20 08:00] VITALS: BP 104/63; PULSE 94; RESP 18; TEMP 37.3; O2SAT 95
[2020-01-20] MEDS: estradiol 1 mg Tablet 0.5 MG PO (08:31)
[2020-01-20] MEDS: pregabalin 50 mg Capsule PO (08:32)
[2020-01-20] MEDS: baclofen 10 mg Tablet PO (08:32)
[2020-01-20] MEDS: psyllium powder Pkt 1 PACKET PO (08:32)
[2020-01-20] MEDS: ziprasidone hcl 40 mg Capsule PO (08:32)
[2020-01-20] MEDS: acetaminophen 325 mg Tablet 650 MG PO (09:04)
[2020-01-20] MEDS: pantoprazole DR 40 mg Tablet PO (09:58)
[2020-01-20 10:55] LABS: Hematocrit 24.5 % (37.0-47.0); Hemoglobin 8.1 g/dL (11.5-15.3)
[2020-01-20 11:32] VITALS: BP 109/66; PULSE 81; RESP 16; TEMP 36.8
--- NOTE | 2020-01-20 11:49 | PM.SDS ---
Short Stay Summary Providers Date of Admit/Discharge: 01/20/20 Attending Provider: Brad Vu MD Primary Care Provider: Marleny Clarke Chief Complaint: POST OP BLEEDING HPI History of Present Illness Trish Julien is a 39 year old female undergone uneventful examination under anesthesia and hemorrhoidectomy about 3 weeks ago, patient presented to the emergency department with bleeding per rectum, I did adolescent counselor the patient for exam under anesthesia and patient was found to have bleeding from the hemorrhoidectomy bed that was surgically repaired and kept over night in the hospital for observation for 2 nights with the plan to discharge home today after stable H&H. Patient did have a bowel movement nonbloody nature and tolerating well p.o. intake Review of Systems General: Reports: 10 or more systems reviewed and unremarkable except in HPI and below Home Meds/Allergies Home Medications and Allergies Home Medications Medication Instructions Recorded Confirmed Type baclofen 10 mg tablet 10 mg PO TID tab 11/13/19 01/18/20 History pregabalin [Lyrica] 50 mg PO BID 12/23/19 01/18/20 History Zoloft 50 mg PO DAILY 01/18/20 01/18/20 History pantoprazole 40 mg PO DAILY 01/18/20 01/18/20 History trazodone 50 mg PO BEDTIME 01/18/20 01/18/20 History Allergies Allergy/AdvReac Type Severity Reaction Status Date / Time codeine Allergy Anaphalactic Verified 01/20/20 15:01 shoick droperidol [From Inapsine] Allergy Anaphalctic Verified 01/20/20 15:01 shock tramadol Allergy ALGY-Hives Verified 01/20/20 15:01 lamotrigine [From Lamictal] AdvReac Hives Verified 01/20/20 15:01 metoprolol AdvReac Hives Verified 01/20/20 15:01 PFSH Acute PFSH: Medical History (Updated 01/20/20 @ 15:02 by Brad Vu MD) Bipolar disorder, current episode manic without psychotic features, mild Generalized anxiety disorder Panic disorder [episodic paroxysmal anxiety] Post-traumatic stress disorder, chronic Surgical History (Updated 01/18/20 @ 14:52 by Brad Vu MD) Status post hemorrhoidectomy (~12/2019) Social History Smoking and tobacco status: never smoked Second hand smoke exposure: No Smoking risk assessment/counseling performed?: Yes Tobacco counseling given: counseling >3 minutes Desire information about substance/drug rehabilitation?: No Vitals/I&O/Wt Last Vital Signs Temp 98.3 F 01/20/20 11:32 Pulse 81 01/20/20 11:32 Resp 16 01/20/20 11:32 BP 109/66 01/20/20 11:32 Pulse Ox 95 01/20/20 08:00 01/19/20 01/20/20 01/20/20 22:59 06:59 14:59 Intake Total 1720.00 / 3946.667 887.5 / 4834.167 Output Total 600 / 600 Balance 1120.00 / 3346.667 887.5 / 4234.167 Physical Exam Narrative: EXAM NARRATIVE: Patient is conscious alert oriented X3 BMI 20 Head and neck examination PERRLA no masses no cervical lymphadenopathy no jaundice Abdomen nontender nondistended soft no organomegaly guarding or rigidity/no signs of peritonitis Perianal examination was done in the presence of female soa engineer patient's nurse Fadia and there is no evidence of bleed just residual external hemorrhoids Hospital Course Discharge Summary: Overall patient is doing well, tolerating by mouth intake, stable vital signs, good urine output Patient had nonbloody bowel movement and pain is appropriately controlled Diagnoses at Discharge Discharge Diagnosis (1) Bleeding per rectum: Status: Resolved Problem details: Discharge patient home on stool softeners and pain medication Discharge Plan Discharge Patient Disposition: Home, Self-Care Condition: Stable Prescriptions: [place] 5-325 mg tablet 1 tab PO Q6H PRN (Reason: pain) Qty: 28 RF: 0 Continued baclofen 10 mg tablet 10 mg PO TID RF: 0 hydroxyzine HCl 50 mg tablet 50 mg PO QID PRN (Reason: anxiety) Qty: 120 RF: 2 ziprasidone HCl [Geodon] 40 mg capsule 40 mg PO BID Qty: 60 RF: 2 mirtazapine 15 mg tablet 15 mg PO .HS Qty: 30 RF: 2 estradiol 0.5 mg tablet 0.5 mg PO DAILY Qty: 30 RF: 12 medroxyprogesterone 2.5 mg tablet 2.5 mg PO DAILY Qty: 30 RF: 12 pregabalin [Lyrica] 50 mg Capsule 50 mg PO BID RF: 0 trazodone 50 mg Tablet 50 mg PO BEDTIME RF: 0 pantoprazole 40 mg Tablet,Delayed Release (Dr/Ec) 40 mg PO DAILY RF: 0 Zoloft 100 mg tablet 50 mg PO DAILY RF: 0 Discharge Orders: Discharge Order (Routine); Ordered 01/20/20 Ordered By: Brad Vu Referrals: Brad Vu MD [Physician] - 01/27/20 11:30 am () Marleny Clarke PA [Primary Care Provider] - 01/27/20 8:15 am Discharge Diet: Advance as tolerated Patient Instructions: Hydrocodone/Acetaminophen (By mouth), Rectal Bleeding (DC), Hemorrhoidectomy (DC) Activity Restrictions/Additional Instructions: 1. Patient can shower surgery 2. Sitz bath's 3-4 times a day using water at room temperature and Epsom salt 3. Up and walking as tolerated 4. Do lift more than 5 pounds first 2 weeks after surgery and not more than 25 pounds 6 to 8 weeks after surgery. 5. Do not operate heavy machinery or drive while using pain medications. 6.Contact the office or return to the ER for worsening nausea vomiting fevers or chills, or noticing any redness around incision sites or discharge. 6. Advised to return to ER or contact my office if there are any signs of infection like, increasing pain, fevers, chills, redness or drainage of pus. 7. Avoid constipation 8. Discharge home pending having bowel movement and resolution of neck tension Attestations Medical Necessity Statement*: Observation status Time Spent in Patient Care*: less than 30 min Quality Metrics Clinical Quality Measures: During this hospital stay, did patient experience: None Coding Level of Care Code Acute [employer] Officer for [employer] Fwd Diagnoses Bleeding per rectum K62.5
[2020-01-20 11:50] VITALS: BP 109/66; PULSE 81; RESP 16; TEMP 36.8
[2020-01-20] MEDS: hyDROXYzine 25 mg Capsule 50 MG PO (11:59)
[2020-01-20] MEDS: lactulose oral liq 20 gm/30 mL UDC PO (12:02)
[2020-01-20] MEDS: ondansetron 2 mg/ML SDV 2 mL 4 MG IVP (12:04)
== END 2020-01-20 15:25 | disposition home or self-care (01) ==
LOC: ER 11:09 → MEDSURG 12:23
PROVIDERS: Family Medicine; Admitting Provider Surgery; Emergency Provider Physician Assistant; Family Provider Family Medicine; PCP Physician Assistant; Visit Provider Surgery
PROC: (CPT 46614; principal; 2020-01-18 10:15)
PROC: 0DJDXZZ Inspection of Lower Intestinal Tract, External Approach (ICD-10-PCS; CPT 46614; 2020-01-18 10:15)
DX: K62.5 Hemorrhage of anus and rectum (principal); T81.31XD Disruption of external operation (surgical) wound, not elsewhere classified, subsequent encounter; T81.89XS Other complications of procedures, not elsewhere classified, sequela; Y83.8 Other surgical procedures as the cause of abnormal reaction of the patient, or of later complication, without mention of misadventure at the time of the procedure; F31.11 Bipolar disorder, current episode manic without psychotic features, mild; F41.9 Anxiety disorder, unspecified; Z98.890 Other specified postprocedural states; F17.210 Nicotine dependence, cigarettes, uncomplicated
CPT/HCPCS: 46614; 12345; 36415; 80053; 85014; 85018; 85025; 85610; 85730; 86850; 86900; 96360; 96361; 96365; 96366; 96374; 96375; 99283; 99285; G0378; J0330; J0694; J2001; J2250; J2270; J2370; J2405; J2704; J3010; J3490; J7030; J8499

== ENCOUNTER 2020-01-31 17:53 | Emergency (ER) | payer MEDICAID, SELFPAY ==
[2020-01-31] VITALS (7 sets, daily range): BP systolic 99–120; BP diastolic 67–79; PULSE 82–108; RESP 16–18; TEMP 37.1; O2SAT 98–100; BMI 19.5
[2020-01-31] MEDS: ondansetron 2 mg/ML SDV 2 mL 4 MG IVP (18:58)
[2020-01-31] MEDS: fentaNYL 50 mcg/mL INJ 2mL IVP ×2 (18:59→20:09)
--- NOTE | 2020-01-31 19:00 | W.ED.GIBLEED ---
HPI - GI Bleed General: Chief complaint: GI Bleed Stated complaint: bloody stool Time Seen by Provider: 01/31/20 18:33 Source: patient Mode of arrival: ambulatory Limitations: no limitations History of Present Illness: HPI Narrative: 40-year-old female patient who is status post hemorrhoidectomy a few weeks ago. Postop period was complicated by rectal bleeding that necessitated return back to the emergency department. Hemoglobin was significantly low and she may have had blood transfusions while she was in the hospital. Today after a large bowel movement she noticed bright red blood per rectum and has a lot of rectal pain. She states that she has been taking her stool softeners. No fever, no nausea or vomiting. MD complaint: gross hematochezia Onset (ago): hour(s) (3) Pain Consistency: now resolved Severity: similar to previous episodes Exacerbating factors: bowel movement Context: hemorrhoids Associated symptoms: Reports other (rectal pain); Denies abdominal pain, chills, fever(s), headache(s), nausea, syncope or vomiting Treatments Prior to Arrival: none Review of Systems General: Reports: 10 or more systems reviewed and unremarkable except in HPI and below Const: Denies: fever, chills, body aches, change in appetite, change in weight or fatigue Card: Reports: lightheadedness; Denies: chest pain, palpitations, irregular heart rhythm, syncope or pre-syncope Resp: Denies: shortness of breath, productive cough, non-productive cough or wheezing GI: Reports: rectal swelling; Denies: abdominal pain, nausea, vomiting or vomiting blood Neuro: Denies: headache, weakness in extremities or changes in sensation PFS ED PFSH: Social History Smoking and tobacco status: never smoked Second hand smoke exposure: No Smoking risk assessment/counseling performed?: Yes Tobacco counseling given: counseling >3 minutes Desire information about substance/drug rehabilitation?: No Physical Exam Const: COMMON NORMALS: no apparent distress, average body habitus, oriented x3, no limitations, healthy appearing, alert and well nourished HENMT: COMMON NORMALS: normocephalic, head/scalp atraumatic and moist oral mucous membranes HEAD & SCALP: normocephalic and atraumatic Eye: COMMON NORMALS: PERRL, EOMs intact bilaterally, conjunctivae normal and no scleral icterus CONJUNCTIVA: Yes conjunctivae normal PUPIL: Yes PERRL Neck/C-Spine: COMMON NORMALS: full ROM, supple, no meningeal signs, no JVD and no carotid bruits Chest: COMMONS NORMALS: inspection of chest normal and palpation of chest normal Resp: COMMON NORMALS: normal respiratory effort, no retractions, no use of accessory muscles, clear to auscultation bilaterally and percussion normal AUSCULTATION: clear to auscultation bilaterally PERCUSSION: percussion normal Cardio: COMMON NORMALS: no JVD, regular rate, regular rhythm, S1 normal heart sound, S2 normal heart sound, no gallops, no clicks, no murmurs, no rub and peripheral pulses 2+ throughout RATE: regular rate RHYTHM: regular rhythm HEART SOUNDS: S1 normal and S2 normal PERIPHERAL PULSES: pulses 2+ throughout GI: COMMON NORMALS: normal to inspection, nondistended, normoactive bowel sounds, soft to palpation, non-tender, no hepatosplenomegaly, no masses and no bruits PALPATION: Yes soft and Yes no hepatosplenomegaly RECTAL EXAM: visual inspection abnormal (No active bleeding. Dried blood noted.) hemorrhoids : COMMON NORMALS: Yes no CVA tenderness BLADDER/KIDNEY EXAM: Yes no CVA tenderness Back/Pelvis: COMMON NORMALS: no CVA tenderness Extremity: COMMON NORMALS: normal to inspection, full ROM, normal capillary refill, no calf tenderness and no pedal edema Neuro: COMMON NORMALS: oriented x3 SENSORIUM/ORIENTATION: Yes alert MENINGEAL SIGNS: Yes no meningeal signs Skin: COMMON NORMALS: no rashes or lesions noted, no wounds, skin turgor normal, no jaundice, no petechiae and no mottling GENERAL SKIN EXAM: no rashes or lesions noted and turgor normal Course Consultations: Consultation #1: Dr. Vu, surgeon who did her surgery. Since her hemoglobin is stable and even better than after discharge and no active bleeding now she can be discharged home to follow-up with him in the clinic next week. Time: 20:05 Vital Signs: Vital signs: Vital Signs Temperature 98.7 F 01/31/20 17:57 Pulse Rate 82 01/31/20 20:12 Respiratory Rate 17 01/31/20 20:12 Blood Pressure 99/67 01/31/20 20:12 Pulse Oximetry 99 01/31/20 20:12 MDM - GI Bleed Lab Data: Labs: Lab Results 01/31/20 01/31/20 01/31/20 Range/Units 19:14 19:14 19:14 WBC 6.2 (4.0-10.0) 10^3/ uL RBC 3.50 L (4.1-5.3) 10^6/u L Hgb 10.4 L (11.5-15.3) g/dL Hct 32.0 L (37.0-47.0) % MCV 91.4 (81-99) fL MCH 29.7 (28.0-34.0) pg MCHC 32.5 (30.0-36.0) g/dL RDW 13.3 (12.1-15.1) % Plt Count 267 (130-400) 10^3/c mm MPV 8.9 (7.4-10.4) fL Neut % (Auto) 53.8 % Lymph % (Auto) 33.3 % Gilliam % (Auto) 8.5 % Eos % (Auto) 3.0 % Baso % (Auto) 0.6 % Neut # (Auto) 3.4 (1.8-7.7) 10^3/u L Lymph # (Auto) 2.1 (0.8-4.8) 10^3/u L Gilliam # (Auto) 0.5 (0.2-0.9) 10^3/u L Eos # (Auto) 0.2 (0.0-0.8) 10^3/u L Baso # (Auto) 0.0 (0.0-0.1) 10^3/u L Nucleated RBC % (a uto) 0 % Nucleated RBCs # 0.0 /100WBC Sodium 140 (136-145) mmol/L Potassium 4.5 (3.5-5.1) mmol/L Chloride 103 (98-107) mmol/L Carbon Dioxide 28 (22-29) mmol/L Anion Gap 13.5 (5-19) BUN 9 (6-20) mg/dL Creatinine 0.7 (0.5-0.9) mg/dL GFR Calculation 93.6 (90-130) mL/min Glucose 90 (65-115) mg/dL Calculated Osmolal ity 286 (285-295) mOsm/k g Calcium 9.7 (8.5-10.5) mg/dL Total Bilirubin 0.2 (0.15-1.2) mg/dL AST 18 (0-32) U/L ALT 14 (0-33) U/L Alkaline Phosphata se 68 (35-105) IU/L Total Protein 7.3 (6.6-8.7) g/dL Albumin 4.3 (3.5-5.2) g/dL Globulin 3.0 (1.3-4.6) g/dL Blood Type O Positive Rho(D) Type Positive Antibody Screen Negative Discharge Plan Discharge Patient Disposition: Home, Self-Care Clinical Impression: BRBPR (bright red blood per rectum), History of hemorrhoidectomy Hemorrhoids Qualifiers: Hemorrhoid type: second degree Qualified Code(s): K64.1 - Second degree hemorrhoids Condition: Stable Prescriptions: [place] 5-325 mg tablet 1 tab PO Q4H PRN (Reason: pain) Qty: 10 RF: 0 Continued baclofen 10 mg tablet 10 mg PO TID RF: 0 hydroxyzine HCl 50 mg tablet 50 mg PO QID PRN (Reason: anxiety) Qty: 120 RF: 2 ziprasidone HCl [Geodon] 40 mg capsule 40 mg PO BID Qty: 60 RF: 2 mirtazapine 15 mg tablet 15 mg PO .HS Qty: 30 RF: 2 estradiol 0.5 mg tablet 0.5 mg PO DAILY Qty: 30 RF: 12 medroxyprogesterone 2.5 mg tablet 2.5 mg PO DAILY Qty: 30 RF: 12 metronidazole [Flagyl] 500 mg tablet 500 mg PO TID Qty: 21 RF: 0 ciprofloxacin HCl 500 mg tablet 500 mg PO BID Qty: 14 RF: 0 pregabalin [Lyrica] 50 mg Capsule 50 mg PO BID RF: 0 trazodone 50 mg Tablet 50 mg PO BEDTIME RF: 0 pantoprazole 40 mg Tablet,Delayed Release (Dr/Ec) 40 mg PO DAILY RF: 0 Zoloft 100 mg tablet 50 mg PO DAILY RF: 0 [place] 5-325 mg tablet 1 tab PO Q6H PRN (Reason: pain) Qty: 28 RF: 0 Metamucil 0.4 gram capsule 0.4 gm PO BID PRN (Reason: constipation) 30 Days Qty: 60 RF: 1 Discharge Orders: Discharge Order (Routine); Ordered 01/31/20 Ordered By: Rasheed Denny Referrals: Lauren Marie MD [Family Provider] - 7-10 days Brad Vu MD [Physician] - 4-7 days (call the clinic on Monday to schedule an appointment.) Marleny Clarke PA [Primary Care Provider] - Patient Instructions: Hemorrhoids (ED), Rectal Bleeding (ED), Hemorrhoidectomy (ED) Activity Restrictions/Additional Instructions: Return for any new or worsening symptoms. Call the office of Dr. Vu on Monday to schedule an appointment to see him next week. Make sure you take your stool softeners twice a day to prevent constipation and worsening of your symptoms. Perform sitz bath at least 3 times a day using Epson salt and room temperature water. Take the pain medicine as needed for severe pain. Discharge Date/Time: 01/31/20 21:57 Coding Level of Care Code ED Music Therapist for Tim Peres
[2020-01-31 19:24] LABS: Basophils % 0.6 %; Eosinophils # 0.2 10^3/uL (0.0-0.8); Hemoglobin 10.4 g/dL (11.5-15.3); Lymphocytes # 2.1 10^3/uL (0.8-4.8); Lymphocytes % 33.3 %; Mean Corpuscular HGB Conc 32.5 g/dL (30.0-36.0); Mean Corpuscular Hemoglobin 29.7 pg (28.0-34.0); Mean Corpuscular Volume 91.4 fL (81-99); Mean Platelet Volume 8.9 fL (7.4-10.4); Monocytes # 0.5 10^3/uL (0.2-0.9); Monocytes % 8.5 %; Neutrophils # 3.4 10^3/uL (1.8-7.7); Neutrophils % 53.8 %; Nucleated Red Blood Cells % 0 %; Platelet Count 267 10^3/cmm (130-400); Red Cell Distribution Width 13.3 % (12.1-15.1); White Blood Count 6.2 10^3/uL (4.0-10.0)
[2020-01-31 19:44] LABS: Alanine Aminotransferase 14 U/L (0-33); Albumin Level 4.3 g/dL (3.5-5.2); Alkaline Phosphatase 68 IU/L (35-105); Anion Gap 13.5 (5-19); Aspartate Amino Transferase 18 U/L (0-32); Blood Urea Nitrogen 9 mg/dL (6-20); Calcium 9.7 mg/dL (8.5-10.5); Carbon Dioxide 28 mmol/L (22-29); Chloride 103 mmol/L (98-107); Glomerular Filtration Rate 93.6 mL/min (90-130); Glucose 90 mg/dL (65-115); Osmolality Calculated 286 mOsm/kg (285-295); Potassium 4.5 mmol/L (3.5-5.1); Sodium 140 mmol/L (136-145); Total Bilirubin 0.2 mg/dL (0.15-1.2); Total Protein 7.3 g/dL (6.6-8.7)
[2020-01-31] MEDS: sodium chloride 0.9% 1,000 ML 999 ML IV (20:28)
[2020-01-31] MEDS: HYDROcodone-acetaminophen 5-325 mg Tablet 4 TAB PO (21:54)
--- NOTE | 2020-02-03 13:46 | DCPLANNER ---
real estate asset manager had message to schedule a follow up appointment for patient with Dr. Vu. real estate asset manager called [facility], spoke with Nury. A follow up appointment was scheduled for February 04 at 2:[address] Vu. Clinic will call patient with appointment information.
--- NOTE | 2020-03-03 07:53 | DCPLANNER ---
Patient attended appointment scheduled with [facility].
== END 2020-01-31 21:57 | disposition home or self-care (01) ==
PROVIDERS: Emergency Provider Family Medicine; Family Provider Family Medicine; PCP Physician Assistant
DX: K62.5 Hemorrhage of anus and rectum (principal); K64.1 Second degree hemorrhoids
CPT/HCPCS: 12345; 36415; 80053; 85025; 86850; 86900; 96360; 96361; 96374; 96375; 96376; 99283; J2405; J3010; J7030

== ENCOUNTER → 2020-04-02 07:59 | Outpatient (BNVA) | payer MEDICAID, SELFPAY | PROVIDERS: Family Provider Family Medicine; PCP Physician Assistant; Visit Provider Psychiatry & Neurology Psychiatry | DX: F60.3 Borderline personality disorder (principal); F41.0 Panic disorder [episodic paroxysmal anxiety]; F41.1 Generalized anxiety disorder; F43.12 Post-traumatic stress disorder, chronic | CPT/HCPCS: 99213 ==

== ENCOUNTER 2021-10-07 11:35 | Emergency (ER) | payer MEDICAID, SELFPAY ==
[2021-10-07 11:53] VITALS: BP 97/54; PULSE 80; RESP 16; TEMP 36.8; O2SAT 98
--- NOTE | 2021-10-07 12:26 | CT_ITS ---
WS: [id number] CT ABDOMEN PELVIS TECHNIQUE: Contrast-enhanced CT of the abdomen and pelvis with coronal and sagittal reformatted image s. CLINICAL INFORMATION: sign LLQ pain, hx of multiple surgeries COMPARISON: None. DLP: 1158.[address] scans at [facility] use at least one of these dose optimization techniques: automated e xposure control; mA and/or kV adjustment per patient size (includes targeted exams where dose is matc hed to clinical indication); or iterative reconstruction. FINDINGS: Cholecystectomy. Prior appendectomy. Mild diffuse fatty infiltration of the liver. Normal portal vein and splenic vein. Normal pancreatic parenchymal enhancement. Normal spleen. Normal GE junction. Lung bases are well aerated. Adrenal glands are normal. Normal renal parenchymal enhancement. No hydronep hrosis. Normal caliber abdominal aorta. Urine distended bladder. Normal sigmoid colon. No evidence of high-grade small or large bowel obstruc tion. Tiny fat-containing umbilical hernia. No abdominal or pelvic lymphadenopathy. No inguinal lymphadenopathy. Heterogeneous enhancement in the uterus likely physiologic. Small amount of fluid in the endometrial canal. No other significant find ings. CT/CT abdomen pelvis w con* [id number] IMPRESSION: 1. Prior cholecystectomy and appendectomy. 2. Mild diffuse fatty infiltration liver. 3. Normal renal parenchymal enhancement. No hydronephrosis. 4. Urine distended bladder. 5. Sigmoid colon is normal in appearance. No evidence of high-grade small or l arge bowel obstruction. 6. No other significant findings.
--- NOTE | 2021-10-07 12:35 | ED_ITS ---
HPI - General Adult General: Chief complaint: Abdominal Pain Stated complaint: ABD PAIN/DIZZY Time Seen by Provider: 10/07/21 12:06 History of Present Illness: HPI narrative: Patient is a 41-year-old female with a history of nephrectomy, 3 prior , appendectomy who presents the emergency room with complaints of significant generalized abdominal pain worse in the left lower quadrant x3 days. Since that onset of symptom, patient has had decreased p.o. intake. Patient reports nausea vomiting and occasionally diarrhea with constipation. Patient denies any melena hematochezia. Denies any new vaginal discharge, trauma, urinary symptoms. No history of kidney stones. Patient has no chest pain, shortness with palpitation or lightheadedness. Onset: 3 days ago Duration:3 days Location:home Severity:moderate Review of Systems Narrative: Constitutional: No fever, no chills. HEENT: No vision changes CV: No chest pain, no palpitations PULM: no cough, no dyspnea. GI: +abdominal pain, +N/+V/+D/+constipation : No dysuria MSKEL: No muscle pain SKIN: No new rashes, no lesions. NEURO: No headache, no focal weakness. HEME: No visible bruises PSYCH: Normal mood PFSH ED PFSH: Medical History (Updated 10/12/21 @ 04:47 by Michael Palmer MD) Bipolar disorder, current episode manic without psychotic features, mild Generalized anxiety disorder Panic disorder [episodic paroxysmal anxiety] Post-traumatic stress disorder, chronic Surgical History Status post hemorrhoidectomy (~12/2019) Family History Denies family history of Diabetes Anesthesia complication Bleeding disorder Cancer Hypertension Social History Smoking and tobacco status: never smoked Second hand smoke exposure: No Desire information about substance/drug rehabilitation?: No Physical Exam Narrative: EXAM NARRATIVE: Head: Atraumatic Eyes: PERRL, conjunctiva without injection ENT: Mucous membrane moist NECK: Supple, ROM intact LUNGS: LCTAB, no crackles/rhonchi CV: RRR ABDOMEN: Soft, +moderate LLQ focal TTP. NO guarding rebound, guarding, rigidity. No CVA tenderness to percussion. Neg Bueno/Neg McBurney's point tenderness, no suprabupic tenderness to palpation. EXTREMITY: Normal ROM SKIN: No rash or erythema NEURO: Awake and alert, no focal motor deficits PSYCH: Normal mood and affect Course Vital Signs: Vital signs: Vital Signs Temperature 98.2 F 10/07/21 11:53 Pulse Rate 74 10/07/21 15:52 Respiratory Rate 18 10/07/21 15:52 Blood Pressure 104/72 10/07/21 15:52 Pulse Oximetry 96 10/07/21 15:52 MDM - General Adult MDM Narrative: Medical decision making narrative: Patient is a 41-year-old female with history of colectomy, appendectomy, C-sections x3 presenting to the emergency room with complaints of 3 days of generalized abdominal pain worse in the left lower quadrant. On exam, she moderate tenderness to palpation blood pressure appears to be soft and 95/53. Patient had no guarding or rebound tenderness. Workup: CBC, CMP, lipase, beta hCG, UA, CT abd+pelvis Intervention: IVF, Pepcid, Zofran WBC 6.9. CT of the pelvis did not show any acute findings. Bedside pelvic exam negative for any adnexal tenderness. Ultrasound pelvis did not show any focal findings. Patient tolerated p.o. without any difficulty. Continues to be hemodynamically stable, pain improved with meds on repeat exam. No suspicion for other acute intra-abdominal pathology including SBO, biliary pathology, appendicitis, diverticulitis, or other emergent condition requiring surgery. Rx tylenol PRN abd pain, maalox/pepcid PRN dyspepsia, and zofran PRN nausea/vomiting Disposition: Discharge. Patient counseled regarding diagnostic impression, treatment plan. Patient given ED strict return precautions to return for continuation, worsening, or development of new symptoms. Instructed to f/u w/ PCP regarding symptoms today. Patient verbalized understanding. Lab Data: Labs: Lab Results 10/07/21 10/07/21 10/07/21 12:41 13:06 13:06 WBC 6.9 10^3/uL 10^3/ uL (4.0-10.0) RBC 4.35 10^6/uL 10^6 /uL (4.1-5.3) Hgb 13.3 g/dL g/dL (11.5-15.3) Hct 38.6 % % (37.0-47.0) MCV 88.7 fl fl (81-99) MCH 30.6 pg pg (28.0-34.0) MCHC 34.5 g/dL g/dL (30.0-36.0) RDW 11.3 % L % (12.1-15.1) Plt Count 247 10^3/cmm 10^3 /cmm (130-400) MPV 9.6 fL fL (7.4-10.4) Neut % (Auto) 56.4 % % Lymph % (Auto) 34.3 % % [place] % (Auto) 6.7 % % Eos % (Auto) 1.9 % % Baso % (Auto) 0.4 % % Neut # (Auto) 3.87 10^3/uL 10^3 /uL (1.8-7.7) Lymph # (Auto) 2.4 10^3/uL 10^3/ uL (0.8-4.8) [place] # (Auto) 0.5 10^3/uL 10^3/ uL (0.2-0.9) Eos # (Auto) 0.1 10^3/uL 10^3/ uL (0.0-0.8) Baso # (Auto) 0.0 10^3/uL 10^3/ uL (0.0-0.1) Nucleated RBC % (a uto) 0 % % Nucleated RBCs # 0.0 /100WBC /100W BC Sodium 138 mmol/L mmol/L (136-145) Potassium 4.1 mmol/L mmol/L (3.5-5.1) Chloride 102 mmol/L mmol/L (98-107) Carbon Dioxide 22 mmol/L mmol/L (22-29) Anion Gap 18.1 (5-19) BUN 14 mg/dL mg/dL (6-20) Creatinine 0.9 mg/dL mg/dL (0.5-0.9) GFR Calculation 69.7 mL/min L mL/ min (90-130) Glucose 98 mg/dL mg/dL (65-115) Calculated Osmolal ity 286 mOsm/kg mOsm/ kg (285-295) Calcium 8.8 mg/dL mg/dL (8.5-10.5) Total Bilirubin 0.4 mg/dL mg/dL (0.15-1.2) AST 10 U/L U/L (0-32) ALT 8 U/L U/L (0-33) Alkaline Phosphata se 64 IU/L IU/L (35-105) Total Protein 7.6 g/dL g/dL (6.6-8.7) Albumin 4.6 g/dL g/dL (3.5-5.2) Globulin 3.0 g/dL g/dL (1.3-4.6) Lipase 35 U/L U/L (13-60) HCG, Qual Urine Color Yellow (Yellow) Urine Appearance Clear (CLEAR) Urine pH 6.5 (5-7) Ur Specific Gravit y 1.015 (1.005-1.030) Urine Protein Neg (Negative) Urine Glucose (UA) Norm (Normal) Urine Ketones Negative (Negative) Urine Blood Neg (Negative) Urine Nitrate Negative (Negative) Urine Bilirubin Neg (Negative) Urine Urobilinogen Norm mg/dL mg/dL (Negative) Ur Leukocyte Shirlene ase Negative (Negative) 10/07/21 13:06 WBC RBC Hgb Hct MCV MCH MCHC RDW Plt Count MPV Neut % (Auto) Lymph % (Auto) [place] % (Auto) Eos % (Auto) Baso % (Auto) Neut # (Auto) Lymph # (Auto) [place] # (Auto) Eos # (Auto) Baso # (Auto) Nucleated RBC % (a uto) Nucleated RBCs # Sodium Potassium Chloride Carbon Dioxide Anion Gap BUN Creatinine GFR Calculation Glucose Calculated Osmolal ity Calcium Total Bilirubin AST ALT Alkaline Phosphata se Total Protein Albumin Globulin Lipase HCG, Qual Negative (Negative) Urine Color Urine Appearance Urine pH Ur Specific Gravit y Urine Protein Urine Glucose (UA) Urine Ketones Urine Blood Urine Nitrate Urine Bilirubin Urine Urobilinogen Ur Leukocyte Shirlene ase Imaging Data^: Other Imaging: Radiologist's impression: [address] [id number] ReportSigned Patient: Trish Julien #: [id number]: 1980Acct#:[id number]/Sex: 41 / FADM Date: 10/07/21Loc: ERRoom/Bed:Attending Dr: Ordering Provider/Ordering MD: Mandie Ramirez MD Date of Service: 10/07/21 Procedure(s): US transvaginal [id number] Accession Number(s): [id number] Report Number: [id number] WS: [id number] ULTRASOUND PELVIS TECHNIQUE: Transvaginal. CLINICAL INFORMATION: OVARIAN TORSION LMP: ? : No. COMPARISON: None. FINDINGS: Uterus Orientation: Anteverted. Size: 7.6 x 2.8 x 4.4 cm Masses: None. Cervix: Normal. Endometrium: Small amount of fluid in the endometrial canal. Endometrium thickness: 3.8 mm. Adnexa: History of bilateral oophorectomy. No adnexal masses. Free fluid: None. Other findings: None. US/US transvaginal [id number] IMPRESSION: 1. Normal uterus and endometrium. Endometrium measures 3.8 mm. 2. Small amount of fluid within the endometrial canal. 3. History of bilateral oophorectomy. No adnexal masses. 4. No free fluid in the cul-de-sac. Dictated By:Hiram Sparks MDSigned By:Hiram Sparks MDSigned Date/Time:10/07/21 1559/ [address] [id number] Scan ReportSigned Patient: Trish Julien #: [id number]: 1980Acct#:[id number]/Sex: 41 / FADM Date: 10/07/21Loc: ERRoom/Bed:Attending Dr: Ordering Provider/Ordering MD: Mandie Ramirez MD Date of Service: 10/07/21 Procedure(s): CT abdomen pelvis w con* [id number] Accession Number(s): [id number] Report Number: [id number] WS: [id number] CT ABDOMEN PELVIS TECHNIQUE: Contrast-enhanced CT of the abdomen and pelvis with coronal and sagittal reformatted images. CLINICAL INFORMATION: sign LLQ pain, hx of multiple surgeries COMPARISON: None. DLP: 1158.[address] scans at [facility] use at least one of these dose optimization techniques: automated exposure control; mA and/or kV adjustment per patient size (includes targeted exams where dose is matched to clinical indication); or iterative reconstruction. FINDINGS: Cholecystectomy. Prior appendectomy. Mild diffuse fatty infiltration of the liver. Normal portal vein and splenic vein. Normal pancreatic parenchymal enha ncement. Normal spleen. Normal GE junction. Lung bases are well aerated. Adrenal glands are normal. Normal renal parenchymal enhancement. No hydronephrosis. Normal caliber abdominal aorta. Urine distended bladder. Normal sigmoid colon. No evidence of high-grade small or large bowel obstruction. Tiny fat-containing umbilical hernia. No abdominal or pelvic lymphadenopathy. No inguinal lymphadenopathy. Heterogeneous enhancement in the uterus likely physiologic. Small amount of fluid in the endometrial canal. No other significant findings. CT/CT abdomen pelvis w con* [id number] IMPRESSION: 1. Prior cholecystectomy and appendectomy. 2. Mild diffuse fatty infiltration liver. 3. Normal renal parenchymal enhancement. No hydronephrosis. 4. Urine distended bladder. 5. Sigmoid colon is normal in appearance. No evidence of high-grade small or large bowel obstruction. 6. No other significant findings. Dictated By:Hiram Sparks MDSigned By:Hiram Sparks MDSigned Date/Time:10/07/21 1444DD/ 1438 Discharge Plan Discharge Patient Disposition: Home Clinical Impression: Abdominal pain Condition: Stable Prescriptions: New Pepcid 20 mg tablet 20 mg PO BID PRN (Reason: abdominal pain) 10 Days Qty: 20 RF: 0 Maalox Advanced 1,000-60 mg tablet,chewable 1 tab PO TID PRN (Reason: abdominal pain) 7 Days Qty: 21 RF: 0 No Action baclofen 10 mg tablet 10 mg PO TID RF: 0 ziprasidone HCl [Geodon] 40 mg capsule 40 mg PO BID Qty: 60 RF: 2 Zoloft 100 mg tablet 50 mg PO DAILY Qty: 15 RF: 2 hydroxyzine HCl 50 mg tablet 50 mg PO QID PRN (Reason: anxiety) Qty: 120 RF: 2 mirtazapine 15 mg tablet 15 mg PO .HS Qty: 30 RF: 2 estradiol 0.5 mg tablet 0.5 mg PO DAILY Qty: 30 RF: 12 medroxyprogesterone 2.5 mg tablet 2.5 mg PO DAILY Qty: 30 RF: 12 metronidazole [Flagyl] 500 mg tablet 500 mg PO TID Qty: 21 RF: 0 ciprofloxacin HCl 500 mg tablet 500 mg PO BID Qty: 14 RF: 0 [place] 5-325 mg tablet 1 tab PO Q4H PRN (Reason: pain) Qty: 10 RF: 0 ondansetron 4 mg tablet,disintegrating 4 mg PO Q8H PRN (Reason: nausea and vomiting) 4 Days Qty: 12 RF: 0 pregabalin [Lyrica] 50 mg Capsule 50 mg PO BID RF: 0 pantoprazole 40 mg Tablet,Delayed Release (Dr/Ec) 40 mg PO DAILY RF: 0 [place] 5-325 mg tablet 1 tab PO Q6H PRN (Reason: pain) Qty: 28 RF: 0 Metamucil 0.4 gram capsule 0.4 gm PO BID PRN (Reason: constipation) 30 Days Qty: 60 RF: 1 Discharge Orders: Discharge ED (Routine); Ordered 10/07/21 Ordered By: Mandie Ramirez Referrals: Marleny Clarke PA [Primary Care Provider] - Discharge Diet: Advance as tolerated Discharge Activity: Resume usual activity Patient Instructions: Abdominal Pain (ED) Activity Restrictions/Additional Instructions: Please come back if you have any worsening abdominal pain, fever or chills, nausea or vomiting, diarrhea, blood in the stool, inability hold down liquid or solids, or any new concerning complaints. Coding Level of Care Code ED Shelter Monitor for Tim Peres
[2021-10-07 12:48] LABS: Add Urine Microscopic? NO; Charge for UA Resulting for Rev
[2021-10-07 12:55] LABS: Bilirubin Urine Neg (Negative); Blood Urine Neg (Negative); Glucose Urine UA Norm (Normal); Ketones Urine Negative (Negative); Leukocyte Esterase Urine Negative (Negative); Nitrate Urine Negative (Negative); Protein Urine Neg (Negative); Specific Gravity, Urine 1.015 (1.005-1.030); Urine Appearance Clear (CLEAR); Urine Color Yellow (Yellow); Urobilinogen Urine Norm (Negative); pH Urine 6.5 (5-7)
[2021-10-07] MEDS: morphine 4 mg/mL SDV 1 mL IVP (13:00)
[2021-10-07] MEDS: famotidine 20 mg/2 mL INJ IVP (13:00)
[2021-10-07] MEDS: sodium chloride 0.9% 1,000 ML 999 ML IV (13:01)
[2021-10-07] MEDS: ondansetron 2 mg/ML SDV 2 mL 4 MG IVP (13:01)
[2021-10-07 13:19] LABS: Basophils % 0.4 %; Eosinophils # 0.1 10^3/uL (0.0-0.8); Eosinophils % 1.9 %; Hematocrit 38.6 % (37.0-47.0); Hemoglobin 13.3 g/dL (11.5-15.3); Lymphocytes # 2.4 10^3/uL (0.8-4.8); Lymphocytes % 34.3 %; Mean Corpuscular HGB Conc 34.5 g/dL (30.0-36.0); Mean Corpuscular Hemoglobin 30.6 pg (28.0-34.0); Mean Corpuscular Volume 88.7 fl (81-99); Mean Platelet Volume 9.6 fL (7.4-10.4); Monocytes # 0.5 10^3/uL (0.2-0.9); Monocytes % 6.7 %; Neutrophils # 3.87 10^3/uL (1.8-7.7); Neutrophils % 56.4 %; Nucleated Red Blood Cells % 0 %; Platelet Count 247 10^3/cmm (130-400); Red Blood Count 4.35 10^6/uL (4.1-5.3); Red Cell Distribution Width 11.3 % (12.1-15.1); White Blood Count 6.9 10^3/uL (4.0-10.0)
[2021-10-07 13:36] LABS: HCG, Serum Qual Negative (Negative)
[2021-10-07 13:38] LABS: Alanine Aminotransferase 8 U/L (0-33); Albumin Level 4.6 g/dL (3.5-5.2); Alkaline Phosphatase 64 IU/L (35-105); Anion Gap 18.1 (5-19); Aspartate Amino Transferase 10 U/L (0-32); Blood Urea Nitrogen 14 mg/dL (6-20); Calcium 8.8 mg/dL (8.5-10.5); Carbon Dioxide 22 mmol/L (22-29); Chloride 102 mmol/L (98-107); Glomerular Filtration Rate 69.7 mL/min (90-130); Glucose 98 mg/dL (65-115); Lipase 35 U/L (13-60); Osmolality Calculated 286 mOsm/kg (285-295); Potassium 4.1 mmol/L (3.5-5.1); Sodium 138 mmol/L (136-145); Total Bilirubin 0.4 mg/dL (0.15-1.2); Total Protein 7.6 g/dL (6.6-8.7)
[2021-10-07] MEDS: iohexol 300 mg/mL 100 mL Btl IV (13:56)
--- NOTE | 2021-10-07 14:51 | US_ITS ---
WS: [id number] ULTRASOUND PELVIS TECHNIQUE: Transvaginal. CLINICAL INFORMATION: OVARIAN TORSION LMP: ? : No. COMPARISON: None. FINDINGS: Uterus Orientation: Anteverted. Size: 7.6 x 2.8 x 4.4 cm Masses: None. Cervix: Normal. Endometrium: Small amount of fluid in the endometrial canal. Endometrium thickness: 3.8 mm. Adnexa: History of bilateral oophorectomy. No adnexal masses. Free fluid: None. Other findings: None. US/US transvaginal [id number] IMPRESSION: 1. Normal uterus and endometrium. Endometrium measures 3.8 mm. 2. Small amount of fluid within the endometrial canal. 3. History of bilateral oophorectomy. No adnexal masses. 4. No free fluid in the cul-de-sac.
[2021-10-07 15:52] VITALS: BP 104/72; PULSE 74; RESP 18; O2SAT 96
== END 2021-10-07 15:54 | disposition home or self-care (01) ==
PROVIDERS: Emergency Provider Emergency Medicine; PCP Physician Assistant
DX: R10.9 Unspecified abdominal pain (principal); Z90.5 Acquired absence of kidney
CPT/HCPCS: 74177; 76830; 80053; 81003; 83690; 84703; 85025; 96361; 96374; 96375; 99283; J2270; J2405; J3490; J7030; Q9967

== ENCOUNTER 2021-10-10 13:25 | Emergency (ER) | payer MEDICAID, SELFPAY ==
[2021-10-10 13:31] VITALS: BP 101/63; PULSE 70; RESP 18; TEMP 36.6; O2SAT 99; BMI 22.4
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
--- NOTE | 2021-10-10 13:52 | PC.NURSE ---
patient placed in c-collar in triage.
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
[2021-10-10 14:15] VITALS: BP 101/63; PULSE 70; RESP 18; O2SAT 99
[2021-10-10 14:21] LABS: Basophils % 0.3 %; Eosinophils # 0.1 10^3/uL (0.0-0.8); Hematocrit 39.9 % (37.0-47.0); Hemoglobin 13.7 g/dL (11.5-15.3); Lymphocytes # 2.6 10^3/uL (0.8-4.8); Lymphocytes % 42.9 %; Mean Corpuscular HGB Conc 34.3 g/dL (30.0-36.0); Mean Corpuscular Hemoglobin 30.6 pg (28.0-34.0); Mean Corpuscular Volume 89.1 fl (81-99); Mean Platelet Volume 9.6 fL (7.4-10.4); Monocytes # 0.4 10^3/uL (0.2-0.9); Neutrophils # 2.84 10^3/uL (1.8-7.7); Neutrophils % 47.5 %; Nucleated Red Blood Cells % 0 %; Platelet Count 290 10^3/cmm (130-400); Red Blood Count 4.48 10^6/uL (4.1-5.3); Red Cell Distribution Width 11.3 % (12.1-15.1)
[2021-10-10] MEDS: morphine 4 mg/mL SDV 1 mL IVP (14:39)
[2021-10-10 14:40] VITALS: BP 101/63; PULSE 70; RESP 18; O2SAT 99
[2021-10-10 14:53] LABS: Alanine Aminotransferase 19 U/L (0-33); Albumin Level 4.7 g/dL (3.5-5.2); Alkaline Phosphatase 64 IU/L (35-105); Aspartate Amino Transferase 18 U/L (0-32); Blood Urea Nitrogen 12 mg/dL (6-20); Calcium 9.1 mg/dL (8.5-10.5); Carbon Dioxide 21 mmol/L (22-29); Chloride 101 mmol/L (98-107); Globulin 2.9 g/dL (1.3-4.6); Glomerular Filtration Rate 79.9 mL/min (90-130); Glucose 96 mg/dL (65-115); Osmolality Calculated 286 mOsm/kg (285-295); Sodium 138 mmol/L (136-145); Total Bilirubin 0.5 mg/dL (0.15-1.2); Total Protein 7.6 g/dL (6.6-8.7)
[2021-10-10 14:59] LABS: HCG, Serum Qual Negative (Negative)
[2021-10-10 15:16] LABS: Anion Gap 20.2 (5-19); Potassium 4.2 mmol/L (3.5-5.1)
[2021-10-10] MEDS: iohexol 350 mg/mL 100 mL Btl IV (15:18)
[2021-10-10 15:45] VITALS: BP 115/71; PULSE 76; RESP 18; O2SAT 97
[2021-10-10] MEDS: metoclopramide 5 mg/mL SDV 2 mL 10 MG IVP (16:36)
[2021-10-10] MEDS: sodium chloride 0.9% 1,000 ML 999 ML IV (16:36)
[2021-10-10] MEDS: diphenhydrAMINE 50 mg/mL SDV 1mL 25 MG IVP (16:36)
[2021-10-10] MEDS: magnesium sulfate premix 2 GM/50 ML PIGGYBACK IV (16:36)
[2021-10-10 17:47] VITALS: BP 134/78; PULSE 88; O2SAT 98
== END 2021-10-10 17:48 | disposition home or self-care (01) ==
PROVIDERS: Emergency Provider Emergency Medicine; PCP Physician Assistant
DX: S06.0X9A Concussion with loss of consciousness of unspecified duration, initial encounter (principal); M54.2 Cervicalgia; R51.9 Headache, unspecified; H53.9 Unspecified visual disturbance; V89.2XXA Person injured in unspecified motor-vehicle accident, traffic, initial encounter
CPT/HCPCS: 70450; 70496; 70498; 71045; 72125; 80053; 84703; 85025; 96365; 96375; 99284; J1200; J2270; J2765; J3475; J7030; Q9967

== ENCOUNTER 2021-10-11 23:34 | Emergency (ER) | payer MEDICAID, SELFPAY ==
[2021-10-11 23:43] VITALS: BP 139/87; PULSE 93; RESP 20; TEMP 37.1; O2SAT 99; BMI 22.3
--- NOTE | 2021-10-12 00:15 | ECG_ITS ---
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 Measurements Intervals [place] Rate: 78 P: 62 NC: 159 QRS: 54 QRSD: 87 T: 52 QT: 390 QTc: 445 Interpretive Statements SINUS RHYTHM Compared to ECG 03/05/2019 15:22:40 No significant changes Electronically Signed On 10-12-2021 13:03:31 [employer] by Jenna Hackett M.D. [id number]
--- NOTE | 2021-10-12 02:06 | ED_ITS ---
HPI - Chest Pain General: Chief Complaint: Chest Pain Stated Complaint: CHEST PAIN Feel like passing out Time Seen by Provider: 10/12/21 02:06 History of Present Illness: HPI narrative: Ms. Julien is a 41-year-old lady with history of psychiatric disorder presents the emergency department due to chest pain. She endorses continued symptoms from previous visits however chest pain is new. She reports that she was traveling to visit her family member in the hospital in [place] and developed pressure in the middle of her chest. Minimal associated shortness of breath. No other typical cardiac features. She tried to go to the hospital in [place] however they reported a long wait time and so she came here. She currently feels anxious. She is somewhat tearful. Denies frequent history of chest pain. No other specific changes in health, exacerbating, relieving factors identified other than as mentioned previous symptoms going back approximately 1 week to prior ED visits. Review of Systems General: Reports: 10 or more systems reviewed and unremarkable except in HPI and below PFSH ED PFSH: Medical History (Updated 10/12/21 @ 04:47 by Michael Palmer MD) Bipolar disorder, current episode manic without psychotic features, mild Generalized anxiety disorder Panic disorder [episodic paroxysmal anxiety] Post-traumatic stress disorder, chronic Surgical History Status post hemorrhoidectomy (~12/2019) Family History Denies family history of Diabetes Anesthesia complication Bleeding disorder Cancer Hypertension Social History Smoking and tobacco status: never smoked Second hand smoke exposure: No Desire information about substance/drug rehabilitation?: No Physical Exam Narrative: EXAM NARRATIVE: GENERAL/CONSTITUTIONAL -mildly ill-appearing. Eyes -no scleral icterus, no conjunctival injection ENMT - Atraumatic external nose and ears. Moist mucous membranes NECK - supple. trachea midline CARDIOVASCULAR - regular rate and rhythm. Normal peripheral perfusion RESPIRATORY -clear to auscultation bilaterally. Mild tachypnea though patient appears to be having anxiety attack, improved with treatment ABDOMEN/GI - Nontender/Nondistended. No tenderness to percussion or evidence of peritonitis MSK - Extremities without obvious deformity or tenderness to palpation SKIN - Warm, Dry NEURO - alert and appropriately oriented. Moves all extremities equally. PSYCH - anxious Course ED course: - Patient was seen and evaluated by me at bedside - Patient placed on cardiac monitors, IV access obtained - Initial evaluation notable for exam as above. -Symptom treatment ordered - Labs notable for no leukocytosis, normal hemoglobin. There is evidence of decreased bicarb and increased anion gap though patient has been hyperventilating. Delta troponin negative. - Imaging notable for negative chest x-ray - Upon serial reexamination after treatment the patient was improved - Based on patient history, evaluation, labs, and imaging as interpreted the most likely cause of the patient's condition is chest pain that is low risk by heart score - The results of ED evaluation were discussed with the patient including prescriptions and/or symptomatic cares (if applicable) including appropriate and responsible use, followup plan, and return precautions. The patient verbalized understanding and felt safe for discharge. - Patient discharged in satisfactory condition. Vital Signs: Vital signs: Vital Signs Temperature 98.7 F 10/11/21 23:43 Pulse Rate 87 10/12/21 04:03 Respiratory Rate 18 10/12/21 05:28 Blood Pressure 157/95 10/12/21 05:28 Pulse Oximetry 98 10/12/21 05:28 MDM - Chest Pain Medical Records: Attestation: I reviewed the patient's medical records. Lab Data: Attestation: I reviewed the patient's lab results. Labs: Lab Results 10/12/21 10/12/21 10/12/21 02:00 02:00 02:00 WBC 9.9 10^3/uL 10^3/ uL (4.0-10.0) RBC 4.72 10^6/uL 10^6 /uL (4.1-5.3) Hgb 14.5 g/dL g/dL (11.5-15.3) Hct 41.1 % % (37.0-47.0) MCV 87.1 fl fl (81-99) MCH 30.7 pg pg (28.0-34.0) MCHC 35.3 g/dL g/dL (30.0-36.0) RDW 11.2 % L % (12.1-15.1) Plt Count 350 10^3/cmm 10^3 /cmm (130-400) MPV 9.5 fL fL (7.4-10.4) Neut % (Auto) 64.1 % % Lymph % (Auto) 28.2 % % [place] % (Auto) 6.3 % % Eos % (Auto) 0.5 % % Baso % (Auto) 0.6 % % Neut # (Auto) 6.32 10^3/uL 10^3 /uL (1.8-7.7) Lymph # (Auto) 2.8 10^3/uL 10^3/ uL (0.8-4.8) [place] # (Auto) 0.6 10^3/uL 10^3/ uL (0.2-0.9) Eos # (Auto) 0.1 10^3/uL 10^3/ uL (0.0-0.8) Baso # (Auto) 0.1 10^3/uL 10^3/ uL (0.0-0.1) Nucleated RBC % (a uto) 0 % % Nucleated RBCs # 0.0 /100WBC /100W BC Sodium 145 mmol/L mmol/L (136-145) Potassium 3.7 mmol/L mmol/L (3.5-5.1) Chloride 106 mmol/L mmol/L (98-107) Carbon Dioxide 17 mmol/L L mmol/ L (22-29) Anion Gap 25.7 H (5-19) BUN 8 mg/dL mg/dL (6-20) Creatinine 0.8 mg/dL mg/dL (0.5-0.9) GFR Calculation 79.9 mL/min L mL/ min (90-130) Glucose 123 mg/dL H mg/dL (65-115) Calculated Osmolal ity 300 mOsm/kg H mOs m/kg (285-295) Calcium 9.8 mg/dL mg/dL (8.5-10.5) Troponin T Baselin e 6 ng/L ng/L (0-10) Troponin T 120 Min tino Delta Troponin T Lipase 31 U/L U/L (13-60) Urine Color Urine Appearance Urine pH Ur Specific Gravit y Urine Protein Urine Glucose (UA) Urine Ketones Urine Blood Urine Nitrate Urine Bilirubin Urine Urobilinogen Ur Leukocyte Shirlene ase Urine RBC Urine WBC Ur Squamous Epith Cells Amorphous Sediment Urine Bacteria Urine Mucus 10/12/21 10/12/21 02:15 04:25 WBC RBC Hgb Hct MCV MCH MCHC RDW Plt Count MPV Neut % (Auto) Lymph % (Auto) [place] % (Auto) Eos % (Auto) Baso % (Auto) Neut # (Auto) Lymph # (Auto) [place] # (Auto) Eos # (Auto) Baso # (Auto) Nucleated RBC % (a uto) Nucleated RBCs # Sodium Potassium Chloride Carbon Dioxide Anion Gap BUN Creatinine GFR Calculation Glucose Calculated Osmolal ity Calcium Troponin T Baselin e Troponin T 120 Min tino 6.00 ng/L ng/L (0-10) Delta Troponin T 0 ABS# ABS# (0-10) Lipase Urine Color Yellow (Yellow) Urine Appearance Clear (CLEAR) Urine pH 5 (5-7) Ur Specific Gravit y 1.020 (1.005-1.030) Urine Protein Neg (Negative) Urine Glucose (UA) Norm (Normal) Urine Ketones 1+ H (Negative) Urine Blood 2+ H (Negative) Urine Nitrate Negative (Negative) Urine Bilirubin Neg (Negative) Urine Urobilinogen Neg mg/dL mg/dL (Negative) Ur Leukocyte Shirlene ase Negative (Negative) Urine RBC 0-4 /hpf H /hpf (0-2) Urine WBC 0-4 /hpf H /hpf (0-5) Ur Squamous Epith Cells Rare /hpf /hpf (0-5) Amorphous Sediment Not Reportable Urine Bacteria Trace /hpf /hpf (NONE) Urine Mucus 2+ /hpf /hpf EKG Data^: EKG 1: Attestation: I personally reviewed and interpreted this EKG as follows: EKG interpretation date: 10/11/21 EKG interpretation time: 23:55 Interpretation: Twelve-lead EKG shows a regular rhythm at a rate of 78. TN interval 159, QRS duration 87, QTc 423. Normal axis. Interpretation: Sinus rhythm Discharge Plan Discharge Patient Disposition: Home Clinical Impression: Chest pain, Anxiety disorder Condition: Stable Prescriptions: No Action baclofen 10 mg tablet 10 mg PO TID RF: 0 ziprasidone HCl [Geodon] 40 mg capsule 40 mg PO BID Qty: 60 RF: 2 Zoloft 100 mg tablet 50 mg PO DAILY Qty: 15 RF: 2 hydroxyzine HCl 50 mg tablet 50 mg PO QID PRN (Reason: anxiety) Qty: 120 RF: 2 mirtazapine 15 mg tablet 15 mg PO .HS Qty: 30 RF: 2 estradiol 0.5 mg tablet 0.5 mg PO DAILY Qty: 30 RF: 12 medroxyprogesterone 2.5 mg tablet 2.5 mg PO DAILY Qty: 30 RF: 12 metronidazole [Flagyl] 500 mg tablet 500 mg PO TID Qty: 21 RF: 0 ciprofloxacin HCl 500 mg tablet 500 mg PO BID Qty: 14 RF: 0 [place] 5-325 mg tablet 1 tab PO Q4H PRN (Reason: pain) Qty: 10 RF: 0 pregabalin [Lyrica] 50 mg Capsule 50 mg PO BID RF: 0 pantoprazole 40 mg Tablet,Delayed Release (Dr/Ec) 40 mg PO DAILY RF: 0 [place] 5-325 mg tablet 1 tab PO Q6H PRN (Reason: pain) Qty: 28 RF: 0 Metamucil 0.4 gram capsule 0.4 gm PO BID PRN (Reason: constipation) 30 Days Qty: 60 RF: 1 Pepcid 20 mg tablet 20 mg PO BID PRN (Reason: abdominal pain) 10 Days Qty: 20 RF: 0 Discharge Orders: Discharge ED (Routine); Ordered 10/12/21 Ordered By: Michael Palmer Referrals: Marleny Clarke PA [Primary Care Provider] - Discharge Diet: Usual diet Discharge Activity: Resume usual activity Patient Instructions: Chest Pain (ED), Anxiety (ED) Activity Restrictions/Additional Instructions: Thank you for visiting the emergency department. You were seen and evaluated for chest pain and continued other symptoms. The exact cause your symptoms is unclear however it does not require hospitalization at this time. There is no evidence of damage to the heart. You were noted to have mild metabolic abn ormalities which will be improved with fluids and may have been indicative of your panic attack. Please follow-up with your primary care provider and psychiatric care team. Return to the emergency department for worsening symptoms or anything else that you are concerned about and feel needs emergency department evaluation. Coding Level of Care Code ED Distance Education Coordinator for Tim Peres
--- NOTE | 2021-10-12 02:07 | XRR_ITS ---
PROCEDURE INFORMATION: Exam: XR Chest Exam date and time: 10/12/2021 2:07 AM Age: 41 years old Clinical indication: Shortness of breath; Chest pressure; Patient HX: C/O chest pain with SOB. TECHNIQUE: Imaging protocol: XR of the chest. Views: 1 view. COMPARISON: CR (CHEST, ) 10/10/2021 3:03 PM FINDINGS: Lungs: Unremarkable. No consolidation. Pleural spaces: Unremarkable. No pleural effusion. No pneumothorax. Heart/Mediastinum: Unremarkable. No cardiomegaly. Bones/joints: Unremarkable. XR/XR chest 1V portable [id number] IMPRESSION: No acute findings.
[2021-10-12 02:37] LABS: Basophils # 0.1 10^3/uL (0.0-0.1); Basophils % 0.6 %; Eosinophils # 0.1 10^3/uL (0.0-0.8); Eosinophils % 0.5 %; Hematocrit 41.1 % (37.0-47.0); Hemoglobin 14.5 g/dL (11.5-15.3); Lymphocytes # 2.8 10^3/uL (0.8-4.8); Lymphocytes % 28.2 %; Mean Corpuscular HGB Conc 35.3 g/dL (30.0-36.0); Mean Corpuscular Hemoglobin 30.7 pg (28.0-34.0); Mean Corpuscular Volume 87.1 fl (81-99); Mean Platelet Volume 9.5 fL (7.4-10.4); Monocytes # 0.6 10^3/uL (0.2-0.9); Monocytes % 6.3 %; Neutrophils # 6.32 10^3/uL (1.8-7.7); Neutrophils % 64.1 %; Nucleated Red Blood Cells % 0 %; Platelet Count 350 10^3/cmm (130-400); Red Blood Count 4.72 10^6/uL (4.1-5.3); Red Cell Distribution Width 11.2 % (12.1-15.1); White Blood Count 9.9 10^3/uL (4.0-10.0)
[2021-10-12] MEDS: LORazepam 2 mg/mL INJ 1 mL 1 MG IM (02:55)
[2021-10-12 02:58] LABS: Troponin(5th) Baseline 6 ng/L (0-10)
[2021-10-12 03:07] LABS: Anion Gap 25.7 (5-19); Blood Urea Nitrogen 8 mg/dL (6-20); Calcium 9.8 mg/dL (8.5-10.5); Carbon Dioxide 17 mmol/L (22-29); Chloride 106 mmol/L (98-107); Glomerular Filtration Rate 79.9 mL/min (90-130); Glucose 123 mg/dL (65-115); Lipase 31 U/L (13-60); Osmolality Calculated 300 mOsm/kg (285-295); Potassium 3.7 mmol/L (3.5-5.1); Sodium 145 mmol/L (136-145)
[2021-10-12] MEDS: sodium chloride 0.9% 1,000 ML 999 ML IV (03:33)
[2021-10-12 04:00] LABS: Add Urine Microscopic? YES; Bilirubin Urine Neg (Negative); Blood Urine 2+ (Negative); Glucose Urine UA Norm (Normal); Ketones Urine 1+ (Negative); Leukocyte Esterase Urine Negative (Negative); Nitrate Urine Negative (Negative); Protein Urine Neg (Negative); Urine Appearance Clear (CLEAR); Urine Color Yellow (Yellow); Urobilinogen Urine Neg (Negative); pH Urine 5 (5-7)
[2021-10-12 04:01] LABS: Add Urine Culture? No; Bacteria Urine TRACE /hpf; Mucus Urine 2+ /hpf; RBC Urine 0-4 /hpf (0-2); Squamous Epithelial Cell Urine RARE /hpf (0-5); WBC Urine 0-4 /hpf (0-5)
[2021-10-12 04:03] VITALS: BP 157/95; PULSE 87; RESP 18; O2SAT 98
[2021-10-12] MEDS: LORazepam 2 mg/mL INJ 1 mL 1 MG IVP (04:38)
[2021-10-12 04:56] LABS: Troponin 5 2HR Delta 0 ABS# (0-10)
[2021-10-12] MEDS: ketorolac 30 mg/mL INJ 15 MG IVP (04:56)
[2021-10-12] MEDS: metoclopramide 5 mg/mL SDV 2 mL 10 MG IVP (04:56)
[2021-10-12 05:28] VITALS: BP 157/95; RESP 18; O2SAT 98
== END 2021-10-12 05:25 | disposition home or self-care (01) ==
PROVIDERS: Emergency Provider Emergency Medicine; PCP Physician Assistant
DX: R07.9 Chest pain, unspecified (principal); F41.9 Anxiety disorder, unspecified
CPT/HCPCS: 71045; 80048; 81001; 83690; 84484; 85025; 93005; 96361; 96372; 96374; 96375; 99284; J1885; J2060; J2765; J7030